=== PATIENT | female | born 1935 | race Caucasian/White ===

== ENCOUNTER → 2017-01-27 | Outpatient (CLI) | payer OTHER ==
[2017-01-27 08:04] LABS: HEMATOCRIT 42.1 % (37.0-47.0); HEMOGLOBIN 13.1 g/dL (12.0-16.0); MEAN CORPUSCULAR HGB CONC 31.1 g/dL (33-37); RDW COEFFICIENT OF VARIATION 15.5 % (11.5-14.5); RED BLOOD COUNT 4.51 10^6/uL (4.20-5.40); WHITE BLOOD COUNT 5.57 10^3/uL (4.8-10.8)
[2017-01-27 08:12] LABS: BILIRUBIN,TOTAL 0.6 mg/dL (0.3-1.2); CALCIUM 9.6 mg/dL (8.7-10.7); CREATININE 1.2 mg/dL (0.50-1.20); LDL CHOLESTEROL,CALCULATED 51.8 mg/dL; POTASSIUM 4.7 meq/L (3.8-5.2)
[2017-01-27 09:16] LABS: FREE T4 (FREE THYROXINE) 1.33 ng/dL (0.93-1.71)
== END ==
LOC: LAB 07:49
PROVIDERS: ATTEND Nurse Practitioner Family
DX: E03.9 Hypothyroidism, unspecified (principal); E78.5 Hyperlipidemia, unspecified; M06.89 Other specified rheumatoid arthritis, multiple sites; F17.210 Nicotine dependence, cigarettes, uncomplicated
CPT/HCPCS: 36415; 80048; 82247; 82465; 82550; 82977; 83718; 84075; 84439; 84443; 84450; 84460; 84478; 85027

== ENCOUNTER → 2017-04-28 | Outpatient (CLI) | payer OTHER | LOC: MMPC 09:00 | PROVIDERS: ATTEND Nurse Practitioner Family | DX: M06.09 Rheumatoid arthritis without rheumatoid factor, multiple sites (principal); E03.9 Hypothyroidism, unspecified; E78.5 Hyperlipidemia, unspecified | CPT/HCPCS: 99214; G0463 ==

== ENCOUNTER → 2017-06-09 | Outpatient (CLI) | payer OTHER ==
--- NOTE | 2017-06-09 19:04 | DI ---
VENOUS DOPPLER ULTRASOUND OF THE LEFT LOWER EXTREMITY, 06/09/2017 5:33 PM: Clinical History: Edema of the left lower extremity. Previous Exam: None. Technique: 2D real-time imaging is supplemented with color Doppler ultrasound. Compression and augmen tation maneuvers were performed. The deep venous system from the groin to the popliteal fossa is norm al. The greater saphenous vein is normal. Reading: Negative venous Doppler ultrasound of the left lower extremity.
== END ==
LOC: US 17:31
PROVIDERS: ATTEND Nurse Practitioner Family
DX: R60.0 Localized edema (principal)
CPT/HCPCS: 93971

== ENCOUNTER 2017-09-28 10:32 | Inpatient (IN) ==
[2017-09-28] MEDS ORDERED: Sodium Chloride 0.9% 1,000 ML ONE (10:44)
--- NOTE | 2017-09-28 10:45 | PDOC ---
Upper Extremity Problem HPI - General Chief Complaint: Upper Extremity Problem/Injury Stated Complaint: hand infection Date Seen by Provider: 09/28/17 Time Seen by Provider: 10:42 Source: POSITIVE: Patient Exam Limitations: POSITIVE: No limitations Nurse's Notes Reviewed & Considered: Yes EMS Report Reviewed & Considered: Unavailable - History of Present Illness Initial Comments: This is an 82-year-old female who presents to the emergency department with a history of increasing redness swelling and pain in her right index finger over the course of the past 24-48 hours. She started having some purulent drainage from it yesterday. No history of any injury, although she does have severe rheumatoid arthritis. No history of any infection like this in the past. She has had some subjective fevers and chills, and she slept all day yesterday, which is unusual for her. No weakness, numbness, tingling in the affected extremity. - Patient Home Medications Home Medications: Home Medications Calcium Carbonate/Vitamin D3 [Calcium 600 with Vit D Chew Tb] 2 ea PO QD tab Magnesium 1 tab PO BID 01/15/15 Aspirin 1 tab PO QPM PRN tab 06/11/15 Cetirizine HCl [Zyrtec] 10 mg PO QD cap 07/28/16 Celecoxib [Celebrex] 1 cap PO BID #180 cap 04/28/17 Gabapentin 1 cap PO TID #270 cap 04/28/17 Levothyroxine Sodium [Synthroid] 1 tab PO QAM #90 tab 04/28/17 Pravastatin Sodium [Pravachol] 1 tab PO QPM #90 tab 04/28/17 hydrocodone 10 mg-acetaminophen 325 mg tablet 1 tab PO Q4-6H #150 tab 07/30/17 hydrocodone 10 mg-acetaminophen 325 mg tablet 1 tab PO Q4-6H PRN #150 tab - Patient Allergies Allergies/Adverse Reactions: Allergies 3 Allergy/AdvReac Type Severity Reaction Status Date / Time adhesive AdvReac Intermediate RASH Verified 09/28/17 15:54 methotrexate AdvReac Mild vomiting Verified 09/28/17 15:54 blueberry AdvReac unknown Verified 09/28/17 15:54 strawberry AdvReac RASH Verified 09/28/17 15:54 Past Medical History - heen HEENT History: Cataracts, Hard of Hearing, Dentures/Partials Cardiovascular History: Hyperlipidemia Additional Cardiovasular History: RIGHT CAROTID ENDARTERECTOMY 2012 Respiratory History: Shortness of Breath, Sleep Apnea, Home Oxygen Use, Snoring Gastrointestinal History: Other (please comment) Additional Gastrointestinal History: PARTIAL BOWEL OBSTRUCTION 2011 Genitourinary History: Denies History Endocrine History: Hypothyroidism Musculoskeletal History: Arthritis, Osteoporosis, Rheumatoid Arthritis, Muscle Weakness, Limited ROM, Joint Pain, Physical Limitation, Osteoarthritis Prosthesis or Implant: No Neurological History: CVA, Motion Sickness Additional Neurological History: 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, BALANCE ISSUES Blood Disorders: Denies History Psychiatric History: Denies History History of Sexually Transmitted Diseases: No Cancer History: Denies History History of MDRO: No History of Other Communicable Diseases: No Alcohol Use: Occasionally In the Past 12 Months, Have Used or Abuse Any Substance: None Previous Surgical History: Yes Type / Date of Surgery: APPY/ RIGHT ENDARTERECTOMY/ TONSILLECTOMY Anesthesia Reactions: Yes (PONV) Malignant Hyperthermia: No Significant Family History: Cancer, Diabetes Past Medical History Reviewed: Reviewed - No Changes ROS - Limitations ROS Limitations: No Limitations Constitution: REPORTS: Chills, Fever Cardiovascular: DENIES: Chest Pain Respiratory: REPORTS: Cough Non Productive. DENIES: Shortness Of Breath Neurological: REPORTS: Dizziness (When standing up.). DENIES: Headache Gastrointestinal: REPORTS: Abdominal Pain, Nausea. DENIES: Vomitting, Diarrhea Endocrine: REPORTS: Fatigue Musculoskeletal: REPORTS: Joint Pain, Muscle Aches Genitourinary: DENIES: Dysuria, Hematuria Eyes: DENIES: Eye Drainage ENT: REPORTS: Congestion, Nasal Drainage. DENIES: Sore Throat Skin: REPORTS: Rash (Redness swelling and drainage from the right index finger) Immunologic: POSITIVE: Denies Symptoms Psychiatric: NEGATIVE: Confusion Upper Extremity Problem Exam - General Appearance General Appearance: POSITIVE: Alert, Cooperative, No Acute Distress - Upper Extremity Upper Extremity: POSITIVE: Swelling (Swelling numerous joints from her rheumatoid arthritis, but worse in the right index finger.). NEGATIVE: Joints Normal (Her finger joints are significantly deformed from rheumatoid arthritis) Vascular: POSITIVE: No Vascular Compromise - Skin Skin: POSITIVE: Warm, Dry, Erythema (Right index finger. She has purulent drainage from two sources along the proximal phalanx.) - Neuro / Psych Peripheral Neuro Exam: POSITIVE: Sensation Normal, Motor Normal Central Neuro Exam: POSITIVE: Oriented to Person, Oriented to Place, Oriented to Time, Normal Speech, Appropriate Mood - HEENT HEENT: NEGATIVE: Scleral Icterus - Respiratory / CVS Respiratory / CVS: POSITIVE: No Respiratory Distress, Breath Sounds Normal, Regular Rate & Rhythm, Heart Sounds Normal - Abdomen Additional Abdominal Details: Abdomen is soft, nondistended, she does have moderate right upper quadrant tenderness to palpation. No rebound or guarding. Active bowel sounds all 4 quadrants. No bruits. Upper Ext Problem Progress - Results Reviewed by me Xrays/CTs/US Reviewed by me: Yes Discussed with Radiologist: No Lab Results Reviewed by Me: Yes CBC and BMP: 09/28/17 10:59 09/28/17 11:00 - Patient's Progress Pain Medication Addressed: POSITIVE: Yes Status: POSITIVE: Unchanged MDM / ED Course: Emergency room course: After initial evaluation, an IV was started and blood was drawn. Once the labs reviewed, they're discussed with the patient and her family. I reviewed the x-rays that were done by the urgent care provider, and those showed severe degenerative changes from rheumatoid arthritis, but I could not definitively say there was obvious osteomyelitis. I gave the patient 1 g of Ancef IV. I discussed the case with the hospitalist, who wanted me to talk with orthopedic surgeon before admitting the patient. I tried to get in touch with the orthopedic surgeon on-call, but he was in surgery. By the time that she was done with surgery and called me back, the hospitalist had gone ahead and admitted the patient. Please note that wound cultures were done by the urgent care provider prior to transfer, I did draw blood cultures. The patient is not currently on any immunomodulating therapy as I can tell. Patient Care Time - Estimated PCT Patient Care Time (In Minutes): 25 Vital Signs - Recent Vital Signs Vital Signs: Vital Signs (Last 8 hours) Temp Pulse Pulse Resp BP Pulse Ox 09/28/17 15:44 98.7 F 78 18 127/57 91 09/28/17 15:37 80 18 Discharge Clinical Impression: Cellulitis and abscess of finger, unspecified Discharge Disposition: Admit to Inpatient Condition: Fair Date Decision to Admit to Inpatient: 09/28/17 Time Decision to Admit to Inpatient: 17:30
[2017-09-28] MEDS ORDERED: NORMAL SALINE 10 ML SYRINGE FLUSH IVP PRN ×2 (10:53→16:06)
[2017-09-28 11:00] LABS: BASOPHILS # (AUTO) 0.03 10*3/UL; BASOPHILS % (AUTO) 0.2 % (0-1); EOSINOPHILS # (AUTO) 0.01 10*3/UL; EOSINOPHILS % (AUTO) 0.1 % (0-8); Hemoglobin [HGB] 11.7 g/dL (12.0-16.0); LYMPHOCYTES # (AUTO) 1.43 10*3/uL; MEAN CORPUSCULAR HEMOGLOBIN 29.5 PG (27-31); MEAN CORPUSCULAR HGB CONC 31.6 g/dL (33-37); MEAN CORPUSCULAR VOLUME 93.4 FL (81-99); MEAN PLATELET VOLUME 9.4 FL (7.4-12.2); MONOCYTES # (AUTO) 1.36 10*3/UL (0.3-0.8); MONOCYTES % (AUTO) 9.1 % (5-15); NEUTROPHILS # (AUTO) 12.02 10*3/UL; NEUTROPHILS % (AUTO) 80.7 % (50-80); RED BLOOD COUNT 3.96 10^6/uL (4.20-5.40)
[2017-09-28 11:20] LABS: BLOOD UREA NITROGEN 25 mg/dL (7-22); LIPASE 10 IU/L (23-300); SERUM ALBUMIN 3.8 g/dL (3.5-4.8)
[2017-09-28 11:36] LABS: PLATELET MORPHOLOGY COMMENT NORMAL MORPHOLOGY (NORM); RBC MORPHOLOGY COMMENT NORMAL MORPHOLOGY (NORM); WBC MORPHOLOGY COMMENT NORMAL MORPHOLOGY (NORM)
[2017-09-28 13:25] LABS: BILIRUBIN,URINE SMALL (NEG); GLUCOSE, URINE (UA) NEGATIVE (NEG); NITRATE,URINE POSITIVE (NEG); OCCULT BLOOD,URINE Trace-intact (NEG); PH,URINE 5.5 (5.0-8.5); PROTEIN,URINE 30 mg/dl (NEG); UROBILINOGEN,URINE 0.2 EU/dL (0.2)
[2017-09-28 13:26] LABS: BACTERIA,URINE RARE; CLARITY,URINE SLIGHTLY CLOUDY (CLEAR); COLOR,URINE DARK YELLOW (Y); RBC,URINE 0 /hpf; SQUAMOUS EPITHELIAL CELL,UR MODERATE; URINE SAMPLE TYPE CATH SPECIMEN
[2017-09-28] MEDS ORDERED: ceFAZolin Inj 1 GM in Sodium Chloride 0.9% 100 ML IV ONE (14:00)
--- NOTE | 2017-09-28 15:42 | PDOC ---
HPI - History of Present Illness Date and Time of Service: 09/28/2017 4:27 PM Chief Complaint: Pain in the right hand of 2 days' duration, swelling and drainage in the right index finger of one day duration History of Present Illness: This is an 82 years old female with medical history significant for history of rheumatoid arthritis, hypothyroidism, osteoarthritis, history of CVA with previous right endarterectomy who went to the urgent care clinic because of pain in the right hand started 2 days ago, pain and swelling in the right index finger that started to drain today. she went to the urgent clinic from there she was sent to the ER x-ray was taken, her white count was elevated at 14,000 , blood culture was taking she was given Ancef and was admitted. She did say that she vomited like 3 times today should did not take any of her medications. She described her pain as severe. Denied other symptoms. She is not sure whether she had fever at home but the right hand was warm. Past Medical History Medical History: 1. Osteoarthritis. 2. Rheumatoid arthritis. 3. History of cerebrovascular accident with a history of a right-sided carotid endarterectomy. 4. Obstructive sleep apnea intolerant of CPAP. 5. Hypercholesterolemia. 6. Hypothyroidism Surgical History: 1. Carotid endarterectomy, right-sided. 2. Appendectomy. 3. Tonsillectomy. 4. 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 [place] Tobacco Use: Current Every Day Smoker In the Past 12 Months, Have Used or Abuse Any of the Following Substance: None Alcohol Use: None Medication / Allergies Home Medications: Home Medications Medication Instructions Recorded Confirmed Type Calcium Carbonate/Vitamin D3 2 ea PO QD tab 12/26/14 09/28/17 History [Calcium 600 with Vit D Chew Tb] Magnesium 1 tab PO BID 01/15/15 09/28/17 History Aspirin 1 tab PO QPM PRN tab 06/11/15 09/28/17 History Cetirizine HCl [Zyrtec] 10 mg PO QD cap 07/28/16 09/28/17 History Celecoxib [Celebrex] 1 cap PO BID #180 cap 04/28/17 09/28/17 Rx Gabapentin 1 cap PO TID #270 cap 04/28/17 09/28/17 Rx Levothyroxine Sodium [Synthroid] 1 tab PO QAM #90 tab 04/28/17 09/28/17 Rx Pravastatin Sodium [Pravachol] 1 tab PO QPM #90 tab 04/28/17 09/28/17 Rx hydrocodone 10 mg-acetaminophen 1 tab PO Q4-6H #150 tab 07/30/17 09/28/17 Clinic 325 mg tablet hydrocodone 10 mg-acetaminophen 1 tab PO Q4-6H PRN #150 tab 09/01/17 09/28/17 Rx 325 mg tablet Allergies/Adverse Reactions: Allergies 3 Allergy/AdvReac Type Severity Reaction Status Date / Time adhesive AdvReac Intermediate RASH Verified 09/28/17 15:54 methotrexate AdvReac Mild vomiting Verified 09/28/17 15:54 blueberry AdvReac unknown Verified 09/28/17 15:54 strawberry AdvReac RASH Verified 09/28/17 15:54 Review of Systems - Review of Systems All Systems: Reviewed & No Additional Complaints Except as Stated Exam - General General Appearance: Cooperative, Obese Additional General Exam Details: She appears uncomfortable - Head Head Exam: Normal Inspection - Eye Eye Exam: POSITIVE: Normal Appearance - Neck Additional Neck Exam Details: Left torticollis - Respiratory Respiratory Exam: POSITIVE: Clear to Auscultation - Bilaterally - Cardiovascular Cardiovascular Exam: POSITIVE: RRR - GI/Abdominal GI/Abdominal Exam: POSITIVE: Normal Bowel Sounds, Non Tender, Non Distended, Soft - Rectal Rectal Exam: POSITIVE: Deferred - External Exam: POSITIVE: Deferred - Extremities Additional Extremities Exam Details: Evidence of advanced rheumatoid arthritis in both hands noted. She had multiple rheumatoid nodules On the extensor surface of both forearms. There is swelling of the right index finger which is tender and warm. 2 areas in the proximal phalanx area that is draining pus. - Neurological Neurological Exam: POSITIVE: Alert, Oriented x 3, CN II-XII Intact, Moves All Extremities Equally - Psychiatric Psychiatric Exam: POSITIVE: Normal Affect Results - Labs CBC and BMP: 09/28/17 10:59 09/28/17 11:00 - Imaging Status: Report Reviewed by Me (X-ray right hand 1. Diffuse osteoporosis, joint deformity and erosions most consistent with advanced rheumatoid arthritis. 2. A lucency through the right mid second proximal phalanx worrisome for a fracture. This does not appear to be acute. Correlate clinically. 3. Large amount of soft tissue swelling surrounding the right index finger to include a small area of air. Correlate clinically as this may represent an abscess.) Assessment and Plan - Patient Problems (1) Abscess of right index finger Current Visit: Yes Status: Acute Comment: Culture was taken, I think will put her on vancomycin I did speak with Dr. Greenberg he will have a look at her. I will write for pain medications also. Code(s): L02.511 - Cutaneous abscess of right hand (2) Hypothyroid Current Visit: No Status: Acute Comment: Same med Code(s): E03.9 - Hypothyroidism, unspecified Qualifiers: Hypothyroidism type: unspecified hypothyroidism (3) Hypercholesterolemia Current Visit: No Status: Acute Comment: Same med Code(s): E78.0 - Pure hypercholesterolemia
[2017-09-28] MEDS ORDERED: ONDANSETRON 4 MG/2 ML VIAL IVP PRN (16:06)
[2017-09-28] MEDS ORDERED: LIDOCAINE W/ SODIUM BICARB 0.5 ML SYR SUBD PRN (16:06)
[2017-09-28] MEDS ORDERED: ACETAMINOPHEN 325 MG TABLET PO PRN (16:06)
[2017-09-28] MEDS ORDERED: Vancomycin-PHA to Dose IV PRN (16:11)
[2017-09-28] MEDS ORDERED: HYDROmorphone 2 MG/1 ML IVP PRN (16:15)
[2017-09-28] MEDS: HYDROcodone-APAP 10 MG-325 MG TABLET PO PRN ×2 (16:46→23:31)
[2017-09-28] MEDS: Sodium Chloride 0.9% 1,000 ML PRIMARY IV SCH (16:48)
[2017-09-28] MEDS ORDERED: Pravastatin Tab 40 MG TAB PO SCH (21:00)
[2017-09-28] MEDS: CELECOXIB 200 MG CAPSULE PO SCH (21:14)
[2017-09-28] MEDS: GABAPENTIN 100 MG CAPSULE PO SCH (21:14)
--- NOTE | 2017-09-28 21:14 | CONSULT ---
Consult Note - Consult Consult Date: 09/28/17 Reason for Consult: PreOp Consulation : Ortho Requesting Physician: Dr. Santiago Primary Care Provider: NONE NONE - History of Present Illness History of Present Illness: Patient is an 82-year-old ambidextrous female who has severe rheumatoid arthritis, chronic deformity to her hand who states she started to have some increasing redness to the finger several days ago and then yesterday started to have some drainage from her right index finger. Patient relates possibly some remote trauma to the finger along the edge of a cupboard which may have started a small laceration but is not sure. She notes that she has had some subjective fever and chills not measured and states she slept all day yesterday and came in today because of general malaise and the drainage from the finger. Patient was seen in urgent care and then sent to the emergency room where x-rays were taken. Patient was seen in the emergency room with an elevated white count elevated inflammatory markers and a drainage from the right index finger. Past Medical History Medical History: 1. Osteoarthritis. 2. Rheumatoid arthritis. 3. History of cerebrovascular accident with a history of a right-sided carotid endarterectomy. 4. Obstructive sleep apnea intolerant of CPAP. 5. Hypercholesterolemia. 6. Hypothyroidism Surgical History: 1. Carotid endarterectomy, right-sided. 2. Appendectomy. 3. Tonsillectomy. 4. 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 [place] Tobacco Use: Current Every Day Smoker In the Past 12 Months, Have Used or Abuse Any of the Following Substance: None Alcohol Use: None Medication / Allergies Home Medications: Home Medications Medication Instructions Recorded Confirmed Type Calcium Carbonate/Vitamin D3 2 ea PO QD tab 12/26/14 09/28/17 History [Calcium 600 with Vit D Chew Tb] Magnesium 1 tab PO BID 01/15/15 09/28/17 History Aspirin 1 tab PO QPM PRN tab 06/11/15 09/28/17 History Cetirizine HCl [Zyrtec] 10 mg PO QD cap 07/28/16 09/28/17 History Celecoxib [Celebrex] 1 cap PO BID #180 cap 04/28/17 09/28/17 Rx Gabapentin 1 cap PO TID #270 cap 04/28/17 09/28/17 Rx Levothyroxine Sodium [Synthroid] 1 tab PO QAM #90 tab 04/28/17 09/28/17 Rx Pravastatin Sodium [Pravachol] 1 tab PO QPM #90 tab 04/28/17 09/28/17 Rx hydrocodone 10 mg-acetaminophen 1 tab PO Q4-6H #150 tab 07/30/17 09/28/17 Clinic 325 mg tablet hydrocodone 10 mg-acetaminophen 1 tab PO Q4-6H PRN #150 tab 09/01/17 09/28/17 Rx 325 mg tablet Allergies/Adverse Reactions: Allergies 3 Allergy/AdvReac Type Severity Reaction Status Date / Time adhesive AdvReac Intermediate RASH Verified 09/28/17 15:54 methotrexate AdvReac Mild vomiting Verified 09/28/17 15:54 blueberry AdvReac unknown Verified 09/28/17 15:54 strawberry AdvReac RASH Verified 09/28/17 15:54 Exam - - Exam: Examination of the right hand does not show any marked or erythema patient does have severe deformity to the right hand as well as a left hand. Particularly the right index finger she has limited motion she does not have a flexor tendon pain but she has an open sore and wound along the dorsal radial aspect of the finger proximal to the PIP joint and also a wound on the proximal ulnar aspect of the finger at the level of the webspace manipulating the tissue around here produces purulent material from both the sinuses she has no flexor tendon pain. She has limited to no motion of the fingers states the produces some discomfort of the index finger and certainly with palpation produces pain. No marked redness no streaking lymphangitis no adenopathy. Patient with multiple rheumatoid nodules throughout the hands otherwise. Radiographs of the right hand show severe deformity to almost every single joint in the hand and wrist there appears to be marked collapse of the carpals with the radius and significant arthritic changes. There is significant arthritic changes at essentially every joint including the CMC is MCP, PIP, DIP joints. The index finger PIP joint is subluxed significant erosions and angulation consistent with some other joints in the hand. No clear evidence of osteomyelitis - Vitals Vital Signs: Vital Signs Temperature 98.7 F Temperature Source Oral Pulse Rate [Apical] 80 Pulse Rate [Pulse Oximeter 78 Bilateral Radial] Respiratory Rate 18 Blood Pressure [Left Arm] 127/57 Pulse Ox 91 Oxygen Flow Rate 2 Oxygen Delivery Method Room Air Height 5 ft Weight 82.157 kg Results - Labs CBC and BMP: 09/28/17 10:59 09/28/17 11:00 Additional Lab Results: Laboratory Results 09/28/17 09/28/17 09/28/17 Range/Units 10:59 10:59 10:59 WBC 14.90 H (4.8-10.8) 10^3/uL RBC 3.96 L (4.20-5.40) 10^6/uL Hgb 11.7 L (12.0-16.0) g/dL Hct 37.0 (37.0-47.0) % MCV 93.4 (81-99) FL MCH 29.5 (27-31) PG MCHC 31.6 L (33-37) g/dL RDW Std Deviation 51.0 H (39-50) fL RDW Coeff of Bertrand 15.2 H (11.5-14.5) % Plt Count 270 (140-350) 10*3/uL MPV 9.4 (7.4-12.2) FL Immature Gran % (Auto) 0.3 (0-5) % Neut % (Auto) 80.7 H (50-80) % Lymph % (Auto) 9.6 L (10-50) % [place] % (Auto) 9.1 (5-15) % Eos % (Auto) 0.1 (0-8) % Baso % (Auto) 0.2 (0-1) % Immature Gran # (Auto) 0.05 10*3/UL Neut # (Auto) 12.02 10*3/UL Lymph # (Auto) 1.43 10*3/uL Marin # (Auto) 1.36 H (0.3-0.8) 10*3/UL Eos # (Auto) 0.01 10*3/UL Baso # (Auto) 0.03 10*3/UL WBC Morphology Comment Normal morphology (NORM) Plt Morphology Comment Normal morphology (NORM) RBC Morph Comment Normal morphology (NORM) ESR 61 H (0-20) MM/HR Sodium (135-145) meq/L Potassium (3.8-5.2) meq/L Chloride (98-112) meq/L Carbon Dioxide (23-33) meq/L Anion Gap (5-20) BUN (7-22) mg/dL Creatinine (0.50-1.20) mg/dL BUN/Creatinine Ratio (6-20) Glucose (78-110) mg/dL Calculated Osmolality (267-292) mOsm/kg Lactic Acid (0.70-2.10) MMOL/L Calcium (8.7-10.7) mg/dL Total Bilirubin (0.3-1.2) mg/dL AST (8-39) IU/L ALT (9-52) IU/L Alkaline Phosphatase (38-126) IU/L C-Reactive Protein 20.9 H (0.0-0.9) mg/dL Total Protein (6.1-8.0) g/dL Albumin (3.5-4.8) g/dL Globulin (2.50-4.10) g/dL Albumin/Globulin Ratio (1.3-2.0) mg/g Lipase (23-300) IU/L Ur Collection Type Urine Color (Y) Urine Clarity (CLEAR) Urine pH (5.0-8.5) Ur Specific [place] (1.005-1.030) Urine Protein (NEG) mg/dl Urine Glucose (UA) (NEG) mg/dL Urine Ketones (NEG) Urine Occult Blood (NEG) Urine Nitrate (NEG) Urine Bilirubin (NEG) Urine Urobilinogen (0.2) EU/dL Ur Leukocyte Esterase (NEG) Urine RBC (NONE) /hpf Urine WBC (NONE) Ur Squamous Epith Cells (NONE) Ur Renal Epithelial Cell (NONE) Urine Crystals Urine Bacteria (NONE) Urine Casts (NONE) Urine Mucus (NONE) Urine Trichomonas (NONE) Urine Yeast (NONE) Ur Culture Indicated? 09/28/17 09/28/17 09/28/17 Range/Units 11:00 11:00 13:20 WBC (4.8-10.8) 10^3/uL RBC (4.20-5.40) 10^6/uL Hgb (12.0-16.0) g/dL Hct (37.0-47.0) % MCV (81-99) FL MCH (27-31) PG MCHC (33-37) g/dL RDW Std Deviation (39-50) fL RDW Coeff of Bertrand (11.5-14.5) % Plt Count (140-350) 10*3/uL MPV (7.4-12.2) FL Immature Gran % (Auto) (0-5) % Neut % (Auto) (50-80) % Lymph % (Auto) (10-50) % [place] % (Auto) (5-15) % Eos % (Auto) (0-8) % Baso % (Auto) (0-1) % Immature Gran # (Auto) 10*3/UL Neut # (Auto) 10*3/UL Lymph # (Auto) 10*3/uL [place] # (Auto) (0.3-0.8) 10*3/UL Eos # (Auto) 10*3/UL Baso # (Auto) 10*3/UL WBC Morphology Comment (NORM) Plt Morphology Comment (NORM) RBC Morph Comment (NORM) ESR (0-20) MM/HR Sodium 142 (135-145) meq/L Potassium 4.0 (3.8-5.2) meq/L Chloride 106 (98-112) meq/L Carbon Dioxide 23 (23-33) meq/L Anion Gap 13 (5-20) BUN 25 H (7-22) mg/dL Creatinine 1.0 (0.50-1.20) mg/dL BUN/Creatinine Ratio 25.00 H (6-20) Glucose 100 (78-110) mg/dL Calculated Osmolality 297.0 H (267-292) mOsm/kg Lactic Acid 1.3 (0.70-2.10) MMOL/L Calcium 9.7 (8.7-10.7) mg/dL Total Bilirubin 1.0 (0.3-1.2) mg/dL AST 26 (8-39) IU/L ALT 28 (9-52) IU/L Alkaline Phosphatase 71 (38-126) IU/L C-Reactive Protein (0.0-0.9) mg/dL Total Protein 7.5 (6.1-8.0) g/dL Albumin 3.8 (3.5-4.8) g/dL Globulin 3.7 (2.50-4.10) g/dL Albumin/Globulin Ratio 1.00 L (1.3-2.0) mg/g Lipase 10 L (23-300) IU/L Ur Collection Type Cath specimen Urine Color Dark yellow (Y) Urine Clarity Slightly cloudy A (CLEAR) Urine pH 5.5 (5.0-8.5) Ur Specific [place] 1.025 (1.005-1.030) Urine Protein 30 A (NEG) mg/dl Urine Glucose (UA) Negative (NEG) mg/dL Urine Ketones Trace A (NEG) Urine Occult Blood Trace-intact H (NEG) Urine Nitrate Positive A (NEG) Urine Bilirubin Small (NEG) Urine Urobilinogen 0.2 (0.2) EU/dL Ur Leukocyte Esterase Negative (NEG) Urine RBC 0 (NONE) /hpf Urine WBC 1-3 (NONE) Ur Squamous Epith Cells Moderate (NONE) Ur Renal Epithelial Cell None (NONE) Urine Crystals None Urine Bacteria Rare (NONE) Urine Casts None (NONE) Urine Mucus Many (NONE) Urine Trichomonas None (NONE) Urine Yeast None (NONE) Ur Culture Indicated? Culture set Patient with Gram stain with gram-negative rods and round rare gram-positive cocci, cultures pending Assessment and Plan - Assessment / Plan Additional Assessment/Plan Details: Impression: Severe rheumatoid arthritis and multiple other medical comorbidities with a draining wound of right index finger with cellulitis F Plan: Patient was started on vancomycin, cultures were obtained in the urgent care unfortunately the area was not sterilized prior to obtaining cultures and she has alert he had antibiotics. Discussed the possibility of open incision and drainage with the patient which I think at least connecting the 2 draining sinuses to see if this extends elsewhere particularly to the PIP joint. I did discuss the possibility of amputation of the finger with the patient which she is not interested in at the current time. I think we will plan on incision and drainage and trying to get this to resolve. - Time/Visit Time Spent With Patient: Greater Than 35 Mintues
[2017-09-29] MEDS ORDERED: LEVOTHYROXINE 112 MCG TABLET PO SCH (05:30)
[2017-09-29] MEDS: HYDROcodone-APAP 10 MG-325 MG TABLET PO PRN ×2 (05:41→19:01)
[2017-09-29] MEDS: Sodium Chloride 0.9% 1,000 ML PRIMARY IV SCH ×2 (07:27→22:23)
[2017-09-29 07:31] LABS: BASOPHILS # (AUTO) 0.03 10*3/UL; BASOPHILS % (AUTO) 0.3 % (0-1); EOSINOPHILS # (AUTO) 0.16 10*3/UL; EOSINOPHILS % (AUTO) 1.8 % (0-8); Hematocrit [HCT] 33.9 % (37.0-47.0); Hemoglobin [HGB] 10.6 g/dL (12.0-16.0); LYMPHOCYTES # (AUTO) 1.34 10*3/uL; MEAN CORPUSCULAR HEMOGLOBIN 29.5 PG (27-31); MEAN CORPUSCULAR HGB CONC 31.3 g/dL (33-37); MEAN CORPUSCULAR VOLUME 94.4 FL (81-99); MEAN PLATELET VOLUME 9.3 FL (7.4-12.2); MONOCYTES # (AUTO) 1.04 10*3/UL (0.3-0.8); MONOCYTES % (AUTO) 11.9 % (5-15); NEUTROPHILS # (AUTO) 6.12 10*3/UL; NEUTROPHILS % (AUTO) 70.4 % (50-80); RED BLOOD COUNT 3.59 10^6/uL (4.20-5.40)
[2017-09-29 07:43] LABS: PLATELET MORPHOLOGY COMMENT NORMAL MORPHOLOGY (NORM); RBC MORPHOLOGY COMMENT NORMAL MORPHOLOGY (NORM); WBC MORPHOLOGY COMMENT NORMAL MORPHOLOGY (NORM)
[2017-09-29] MEDS: GABAPENTIN 100 MG CAPSULE PO SCH ×4 (07:45→20:33)
[2017-09-29] MEDS: CELECOXIB 200 MG CAPSULE PO SCH ×3 (07:45→20:33)
--- NOTE | 2017-09-29 08:12 | PDOC(PROG) ---
Date and Time of Service: 09/29/2017 8:11 AM Interval History: Subjective Pain seemed to be controlled with the current pain medications. Dr. Greenberg made her nothing by mouth and is planning to do I&D today. No more vomiting. Objective : Data - Labs CBC and BMP: 09/29/17 07:24 09/28/17 11:00 Objective : Exam - General General Appearance: No Acute Distress, Cooperative, Obese - Head Head Exam: Normal Inspection, Atraumatic - Eye Eye Exam: Normal Appearance - ENT ENT Exam: Normal Exam - Neck Additional Neck Exam Details: Left torticollis present - Respiratory Respiratory Exam: Clear to Auscultation - Bilaterally - Cardiovascular Cardiovascular Exam: RRR - GI/Abdominal GI/Abdominal Exam: Normal Bowel Sounds, Non Tender, Non Distended, Soft - Rectal Rectal Exam: Deferred - External Exam: Deferred - Extremities Additional Extremities Exam Details: Dressing applied to the right hand. Evidence of rheumatoid arthritis in both hands. Rheumatoid nodules on extensor service of both forearms - Neurological Neurological Exam: Alert, Oriented x 3, CN II-XII Intact, No Facial Droop, Speech Intact / Clear, Moves All Extremities Equally - Psychiatric Psychiatric Exam: Normal Affect - Integumentary Integumentary Exam: Normal Color Assessment and Plan - Patient Problems (1) Abscess of right index finger Current Visit: Yes Status: Acute Comment: Plan for I&D today. Continue current antibiotics Code(s): L02.511 - Cutaneous abscess of right hand (2) Hypothyroid Current Visit: No Status: Acute Comment: Same med Code(s): E03.9 - Hypothyroidism, unspecified Qualifiers: Hypothyroidism type: unspecified hypothyroidism (3) Hypercholesterolemia Current Visit: No Status: Acute Comment: Same med Code(s): E78.0 - Pure hypercholesterolemia
[2017-09-29] MEDS ORDERED: cefTRIAXone Inj 1 GM in Sodium Chloride 0.9% 100 ML IV SCH (11:00)
[2017-09-29] MEDS ORDERED: Lactated Ringers 1,000 ML PRIMARY IV SCH ×2 (11:15→18:58)
[2017-09-29] MEDS ORDERED: Sodium Chloride 0.9% 2,000 ML ONE (14:57)
[2017-09-29] MEDS ORDERED: Sodium Chloride 0.9% vial 10 ML ONE (14:57)
[2017-09-29] MEDS ORDERED: BACITRACIN 50,000 UNIT VIAL IRRIG ONE (14:57)
[2017-09-29] MEDS ORDERED: LIDOCAINE W/ SODIUM BICARB 0.5 ML SYR ONE (16:46)
--- NOTE | 2017-09-29 17:20 | ORTHO.PROG ---
Last Taken Vital Signs: Vital Signs - Last Taken Temperature 98.4 F 09/29/17 16:30 Pulse Rate 62 09/29/17 16:30 Respiratory Rate 16 09/29/17 16:30 Blood Pressure 152/55 09/29/17 16:30 Pulse Ox 94 09/29/17 16:30 Subjective: Doing well mild pain right index finger Objective: Patient with less redness around finger still has drainage from the opening proximal to the PIP joint along the radial aspect and also along the proximal ulnar aspect towards web space. Laboratory Results 09/29/17 Range/Units 07:24 WBC 8.71 (4.8-10.8) 10^3/uL RBC 3.59 L (4.20-5.40) 10^6/uL Hgb 10.6 L (12.0-16.0) g/dL Hct 33.9 L (37.0-47.0) % MCV 94.4 (81-99) FL MCH 29.5 (27-31) PG MCHC 31.3 L (33-37) g/dL RDW Std Deviation 51.2 H (39-50) fL RDW Coeff of Bertrand 15.3 H (11.5-14.5) % Plt Count 236 (140-350) 10*3/uL MPV 9.3 (7.4-12.2) FL Immature Gran % (Auto) 0.2 (0-5) % Neut % (Auto) 70.4 (50-80) % Lymph % (Auto) 15.4 (10-50) % Barton % (Auto) 11.9 (5-15) % Eos % (Auto) 1.8 (0-8) % Baso % (Auto) 0.3 (0-1) % Immature Gran # (Auto) 0.02 10*3/UL Neut # (Auto) 6.12 10*3/UL Lymph # (Auto) 1.34 10*3/uL Barton # (Auto) 1.04 H (0.3-0.8) 10*3/UL Eos # (Auto) 0.16 10*3/UL Baso # (Auto) 0.03 10*3/UL WBC Morphology Comment Normal morphology (NORM) Plt Morphology Comment Normal morphology (NORM) RBC Morph Comment Normal morphology (NORM) Microbiology 09/28/17 11:00 Blood Culture - Preliminary Blood NO GROWTH AFTER 24 HOURS 09/28/17 10:59 Blood Culture - Preliminary Blood NO GROWTH AFTER 24 HOURS 09/28/17 13:20 Urine Culture - Preliminary Urine,Catheterized Vital Signs (24 hrs) Temp Pulse Pulse Pulse Pulse Resp BP 09/29/17 17:17 99.0 F 62 16 162/72 09/29/17 16:30 98.4 F 62 16 09/29/17 13:00 98.8 F 58 L 18 09/29/17 08:00 98.2 F 60 16 09/29/17 07:00 74 09/29/17 04:28 98.5 F 68 19 09/28/17 23:42 98.6 F 67 18 09/28/17 21:00 98.9 F 68 20 BP BP Pulse Ox 09/29/17 17:17 91 09/29/17 16:30 152/55 94 09/29/17 13:00 148/49 94 09/29/17 08:00 136/58 91 09/29/17 07:00 09/29/17 04:28 117/48 92 09/28/17 23:42 138/49 90 09/28/17 21:00 116/56 90 Assessment: Patient with severe rheumatoid arthritis and deformities with draining right index finger question osteomyelitis versus a septic joint versus soft tissue infection Plan: We will plan on IND connecting the dots so to speak between the 2 open sinuses and exploring finger proceed with this may go I did discuss with the patient this may require amputation based on her significant rheumatoid issues in a severe deformity to bring much every joint in the hand and wrist. She understands we'll proceed initially with the incision and drainage leaving open for wound care continued IV antibiotic and we'll follow her along.
[2017-09-29] MEDS ORDERED: LIDOCAINE 2%/ EPI 1:200,000 - 20 ML VIAL ONE (17:21)
[2017-09-29] MEDS ORDERED: fentaNYL Inj 100 MCG/2 ML VIAL ONE (17:21)
[2017-09-29] MEDS ORDERED: MEPIVACAINE HCL/PF 20 MG/1 ML ONE (17:21)
[2017-09-29] MEDS ORDERED: MIDAZOLAM 5 MG/1 ML ONE (17:22)
[2017-09-29] MEDS ORDERED: MIDAZOLAM 5 MG/1 ML IVP ONE (17:22)
[2017-09-29] MEDS ORDERED: PROPOFOL 10 MG/1 ML (200 MG/20 ML) VIAL IV ONE (17:46)
--- NOTE | 2017-09-29 18:10 | CRNA.PROCE ---
Nerve Block Documentation - - Safety Measures: Time Out Taken, Site Verified - - Type of Nerve Block Used: Right Axillary Block (Periarterial tech with 22ga B bevel needle) Position for Nerve Block: Supine Moniters Used During Block: EKG, SPO2, NIBP Oxygen Supplemented: Yes Sedation Used - Enter Amount in Comment Field [ANES.SEDAT]: Midazolam (mg): Yes (1mg iv), Fentanyl (mcg): Yes (50mcg iv) Skin Prep Used: ChloroPrep Technique: Other Nerve Block Needle Used: Other (22ga Bbevel) Local Anesthetic - Enter Amt in Comment Field [ANES.LOCNB]: 2 % Xylocaine with Epinephrine 1:200,000 (mL): Yes (20ml), 2 % Mepivacaine (mL): Yes (20ml) - - PreOp Block : Time In: 17:15 PreOp Block : Time Out: 17:25 Anesthesia Time - Other Weight: 84.096 kg Height: 5 ft Body Mass Index (BMI): 36.2
--- NOTE | 2017-09-29 18:43 | CRNA.PROGR ---
Post Anesthesia Phase II - Post Anesthesia Phase II Patient Stable and Discharged To: Phase II Care Assumed By Surgeon: Raffaele Greenberg MD Temperature: 98.3 F Pulse Rate: 68 Respiratory Rate: 14 Blood Pressure: 153/72 Pulse Ox: 93 Total Cece Score at Discharge: 10 Post Anesthesia Discharge Criteria Met: Yes
--- NOTE | 2017-09-29 18:44 | CRNA.PROGR ---
Anesthesia Time - - Start date: 09/29/17 End date: 09/29/17 - Procedure/Recovery Time Anesthesia : Time In: 17:39 Anesthesia : Time Out: 18:35 Anesthesia : Total Time: 56 - Block Time PreOp Block : Time In: 17:15 PreOp Block : Time Out: 17:25 PreOp Block : Total Time: 10 - Total Anesthesia Time Total Anesthesia Time (minutes): 66 - Other Weight: 84.096 kg Height: 5 ft Body Mass Index (BMI): 36.2 Physical Status: P2 Anesthesia Type: General Anesthesia : LMA
[2017-09-29] MEDS ORDERED: ONDANSETRON 4 MG/2 ML VIAL IVP PRN ×2 (18:58)
[2017-09-29] MEDS ORDERED: LIDOCAINE W/ SODIUM BICARB 0.5 ML SYR SUBD PRN (18:58)
[2017-09-29] MEDS ORDERED: ACETAMINOPHEN 325 MG TABLET PO PRN (18:58)
[2017-09-29] MEDS ORDERED: Sodium Chloride 0.9% 1,000 ML PRIMARY IV SCH (18:58)
[2017-09-29] MEDS ORDERED: NORMAL SALINE 10 ML SYRINGE FLUSH IVP PRN (18:58)
[2017-09-29] MEDS ORDERED: HYDROcodone-APAP 10 MG-325 MG TABLET PO PRN (18:58)
[2017-09-29] MEDS: Pravastatin Tab 40 MG TAB PO SCH (20:33)
[2017-09-29] MEDS: HYDROmorphone 2 MG/1 ML IVP PRN (22:55)
[2017-09-30] MEDS: HYDROcodone-APAP 10 MG-325 MG TABLET PO PRN ×4 (01:16→17:21)
[2017-09-30] MEDS: LEVOTHYROXINE 112 MCG TABLET PO SCH ×2 (04:07→05:29)
[2017-09-30] MEDS: HYDROmorphone 2 MG/1 ML IVP PRN (04:19)
[2017-09-30] MEDS: CELECOXIB 200 MG CAPSULE PO SCH ×2 (08:14→20:48)
[2017-09-30] MEDS: GABAPENTIN 100 MG CAPSULE PO SCH ×3 (08:14→20:48)
[2017-09-30] MEDS: LORATADINE 10 MG TABLET PO SCH (08:14)
[2017-09-30] MEDS: MAGNESIUM OXIDE 400 MG TABLET PO SCH (08:15)
[2017-09-30] MEDS: cefTRIAXone Inj 1 GM in Sodium Chloride 0.9% 100 ML IV SCH (10:09)
--- NOTE | 2017-09-30 10:28 | PDOC(PROG) ---
Date and Time of Service: 09/30/2017 10:21 AM Interval History: Subjective She feels a lot better she said, pain seemed to be less. Overall generally she is better. Objective : Data - Labs CBC and BMP: 09/29/17 07:24 09/28/17 11:00 Objective : Exam - General General Appearance: No Acute Distress, Cooperative - Head Head Exam: Normal Inspection, Atraumatic - Eye Eye Exam: Normal Appearance - ENT ENT Exam: Normal Exam - Neck Neck Exam: Normal Inspection - Respiratory Respiratory Exam: Clear to Auscultation - Bilaterally - Cardiovascular Cardiovascular Exam: RRR - GI/Abdominal GI/Abdominal Exam: Normal Bowel Sounds, Non Tender, Non Distended, Soft - Rectal Rectal Exam: Deferred - External Exam: Deferred - Extremities Additional Extremities Exam Details: Dressing applied to the right hand. Chronic changes of rheumatoid arthritis noted. Rheumatoid nodules noted in both extensor surfaces of both arms - Neurological Neurological Exam: Alert, Oriented x 3, CN II-XII Intact, Moves All Extremities Equally - Psychiatric Psychiatric Exam: Normal Affect Assessment and Plan - Patient Problems (1) Abscess of right index finger Current Visit: Yes Status: Acute Comment: Continue current antibiotics until we have culture result. We'll stop the IV fluid Code(s): L02.511 - Cutaneous abscess of right hand (2) Hypothyroid Current Visit: No Status: Acute Comment: Same med Code(s): E03.9 - Hypothyroidism, unspecified Qualifiers: Hypothyroidism type: unspecified hypothyroidism (3) Hypercholesterolemia Current Visit: No Status: Acute Comment: Same med Code(s): E78.0 - Pure hypercholesterolemia
--- NOTE | 2017-09-30 17:34 | PT.PROG ---
Progress Note Progress Note: Thank you for the referral of PT Karol Jaffe was seen on 09/30/17 following . Subjective: The patient is an 82 year old female who suffers from significant rheumatoid arthritis, hypothyroidism, and osteoarthritis. She was seen in acute care following abscess removal in her R hand. The patient is right handed and her stated goals are to regain as much much function as possible in her hand and to return home from the hospital. Prior to dressing removal the pt. complained of 3 /10 pain. After cleaning and redressing the pt. pain was elevated to 5/10. Pt. complains of no other symptoms other than pain in her hand. 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 Following the IND procedure the pt. has increased swelling and redness in her involved hand. There are two main wounds to be addressed, both experiencing undermining. The wound on the radial side of her index finger is 1cm in length with serous drainage. The wound on the webspace between the first and second digit is deeper and a length (a few cm ) was unable to be determined due to pt. pain. Less drainage was noted in this would. Pt. motion in involved hand was decreased due to pain and swelling. Swellingis present from distal tip of the first phalanx into the palm. Measurements were deferred at this time due to pt. pain. Assessment: The patient is ready to take the healing process one day at a time. Her finger is highly sensitive, red, and swollen. Her severe RA also makes her situation more difficult and will be a major obstacle in terms of regaining function. She has a positive attitude and was able to tolerate the cleaning and redressing of her wounds. The pt. will benefit from continued wound healing processes and activity to regain function once healing has begun. 1. Pain 2. Swelling 3. Decreased ROM 4. RA Short Term Goals: 1. The pt. will decrease swelling in hand. 2. The pt. will decrease pain with dressing change to 3/10 to increase comfort with process. [employer] Goals: 1. Increase strength to in hand to allow for increased function with daily tasks. 2. Increase ROM in hands to allow for increased ability to function. Treatment Plan: The patient will be seen B.I.D. during the week and one time per day over the weekend until discharge. ICU Eval: The treatment consisted of initial evaluation with Dr. Greenberg present followed by cleaning of would with saline and redressing. Redressing consisted of light packing with Iodoform, covering with gauze pad, wrapping with gauze and coban. Edward Alba, SPT Ivan Dutton, PT
--- NOTE | 2017-09-30 19:22 | ORTHO.PROG ---
Last Taken Vital Signs: Vital Signs - Last Taken Temperature 98.2 F 09/30/17 16:47 Pulse Rate 65 09/30/17 16:47 Respiratory Rate 20 09/30/17 16:47 Blood Pressure 152/55 09/30/17 16:47 Pulse Ox 92 09/30/17 16:47 Subjective: Patient feels her pain is less right index finger compared to yesterday prior to surgery Objective: Examination of the right index finger shows the finger appears to be more red MRI opinion compared to yesterday though less swelling is she does not have any marked amount of purulent pain after the drains were pulled and manipulation of the soft tissue as we were yesterday. She has limited motion of the fingers. She has to open sinuses which had been debrided open the soft tissue underneath these and iodoform had been removed. This is being repacked. Active Medications Microbiology 09/28/17 11:00 Blood Blood Culture - Preliminary NO GROWTH AFTER 48 HOURS 09/28/17 10:59 Blood Blood Culture - Preliminary NO GROWTH AFTER 48 HOURS 09/28/17 13:20 Urine,Catheterized Urine Culture - Final Vital Signs (24 hrs) Temp Pulse Pulse Pulse Resp BP BP 09/30/17 16:47 98.2 F 65 20 152/55 09/30/17 13:00 97.7 F 58 L 18 163/53 09/30/17 08:53 98.2 F 60 20 125/46 09/30/17 07:00 64 67 09/30/17 04:26 98.6 F 62 16 131/56 09/30/17 01:00 97.8 F 70 16 118/48 09/29/17 21:00 98 F 82 18 135/49 Pulse Ox 09/30/17 16:47 92 09/30/17 13:00 95 09/30/17 08:53 92 09/30/17 07:00 09/30/17 04:26 91 09/30/17 01:00 94 09/29/17 21:00 92 Assessment: Right index finger abscess with drainage cannot really assess where exactly this originated from possibly from trauma to the finger where she states she had a small cut. Other possibilities include the metacarpophalangeal joint of the index finger versus the PIP joint index finger but because essentially all joints on the fingers are destroyed and have limited to no motion I think it is not possible to delineate the source of her infection. Continue with IV antibiotics wound care possible second washout. Patient is with no evidence of flexor tenosynovitis Plan: Continue with IV antibiotics, hospitalist apparently discussed the case with infectious disease. We will possibly consider a second washout as were following the wound care long period if this does not heal progress adequately the patient may require amputation as we have discussed.
[2017-09-30] MEDS: Pravastatin Tab 40 MG TAB PO SCH (20:48)
[2017-10-01] MEDS: HYDROcodone-APAP 10 MG-325 MG TABLET PO PRN ×4 (00:05→16:59)
[2017-10-01] MEDS: LEVOTHYROXINE 112 MCG TABLET PO SCH (04:51)
[2017-10-01] MEDS: MAGNESIUM OXIDE 400 MG TABLET PO SCH (08:33)
[2017-10-01] MEDS: CELECOXIB 200 MG CAPSULE PO SCH ×2 (08:33→20:59)
[2017-10-01] MEDS: LORATADINE 10 MG TABLET PO SCH (08:33)
[2017-10-01] MEDS: GABAPENTIN 100 MG CAPSULE PO SCH ×3 (08:33→20:59)
[2017-10-01] MEDS: cefTRIAXone Inj 1 GM in Sodium Chloride 0.9% 100 ML IV SCH (11:02)
--- NOTE | 2017-10-01 12:39 | PDOC(PROG) ---
Interval History: Patient is doing well has no complaints Objective : Data - Labs CBC and BMP: 09/29/17 07:24 09/28/17 11:00 Objective : Exam - Respiratory Respiratory Exam: Clear to Auscultation - Bilaterally, Breathing Non Labored - Cardiovascular Cardiovascular Exam: RRR, No Murmur, No Clicks Assessment and Plan - Patient Problems (1) Abscess of right index finger Current Visit: Yes Status: Acute Comment: Further orthopedic surgery for possible second washout. Patient has a history of rheumatoid arthritis she only took methotrexate for 3 years did not tolerate it she is only on Celebrex at present time. Continue antibiotics Code(s): L02.511 - Cutaneous abscess of right hand
[2017-10-01] MEDS: NORMAL SALINE 10 ML SYRINGE FLUSH IVP PRN ×2 (12:54→19:17)
--- NOTE | 2017-10-01 16:06 | PT.PROG ---
Progress Note Progress Note: S: Pt. reported decreased pain at a 5/10. She said her hand is feeling better and that she would like to return home soon. O: Swelling and redness of the 2nd phalanx has decreased. Wounds are both 1cm in diameter. The wound in the webspace between the second and third digits is experiencing tunneling 2.5cm in depth. The wound on the radial side of the index finger is 1cm in depth. Both wounds were absent of exudate or drainage. The wounds were cleaned, packed with Iodoform, and rebandanged. A: The second phalanx was much improved from yesterday. Redness, swelling and pain has all decreased. Motion of the whole hand has also improved. No drainage was present in either wound. Pt. will continue to benefit from skilled therapy for cleaning and redressing until discharge. P: Continue POC. Edward Alba, SPT Ivan Dutton, PT
--- NOTE | 2017-10-01 17:25 | ORTHO.PROG ---
Last Taken Vital Signs: Vital Signs - Last Taken Temperature 98.1 F 10/01/17 16:42 Pulse Rate 62 10/01/17 16:42 Respiratory Rate 20 10/01/17 16:42 Blood Pressure 157/55 10/01/17 16:42 Pulse Ox 93 10/01/17 16:42 Subjective: Patient notes her pain is getting less and seems to be doing better Objective: Sinuses is still open there is some tunneling on both of the thumb seems to be getting less is no active drainage from these areas when the sarah were removed with manipulation and pain is less. Microbiology 09/28/17 11:00 Blood Blood Culture - Preliminary NO GROWTH AFTER 48 HOURS 09/28/17 10:59 Blood Blood Culture - Preliminary NO GROWTH AFTER 48 HOURS 09/28/17 13:20 Urine,Catheterized Urine Culture - Final Cultures obtained of the hand were done as an outpatient and are showing a light growth of gram-negative rods still pending identification. Assessment: Right index finger abscess with history of severe rheumatoid arthritis. Patient on IV antibiotics. Switched the current time from vancomycin and ceftriaxone 2 apparently cefepime Plan: Continue with wound care and IV antibiotics. Question as to recommendation from infectious disease. Patient has severe immunocompromisation and suspect that antibiotics would be helpful until this is completely healed. We will continue to follow her along
[2017-10-01] MEDS: HYDROmorphone 2 MG/1 ML IVP PRN (19:16)
[2017-10-01] MEDS: Pravastatin Tab 40 MG TAB PO SCH (20:59)
[2017-10-01] MEDS ORDERED: Cefepime Inj 2 GM in Sodium Chloride 0.9% 100 ML IV SCH (21:00)
[2017-10-01] MEDS: Cefepime Inj 2 GM in Sodium Chloride 0.9% 100 ML IV SCH (21:00)
[2017-10-02] MEDS: LEVOTHYROXINE 112 MCG TABLET PO SCH (04:34)
[2017-10-02] MEDS: MAGNESIUM OXIDE 400 MG TABLET PO SCH (06:26)
[2017-10-02] MEDS: HYDROcodone-APAP 10 MG-325 MG TABLET PO PRN ×4 (06:27→18:42)
[2017-10-02] MEDS: GABAPENTIN 100 MG CAPSULE PO SCH ×3 (08:10→20:48)
[2017-10-02] MEDS: LORATADINE 10 MG TABLET PO SCH (08:10)
[2017-10-02] MEDS: Cefepime Inj 2 GM in Sodium Chloride 0.9% 100 ML IV SCH (08:10)
[2017-10-02] MEDS: CELECOXIB 200 MG CAPSULE PO SCH ×2 (08:10→20:48)
[2017-10-02] MEDS ORDERED: Meropenem Inj 1 GM in Sodium Chloride 0.9% 100 ML IV ONE (10:00)
[2017-10-02] MEDS: NORMAL SALINE 10 ML SYRINGE FLUSH IVP PRN ×2 (10:10→14:12)
[2017-10-02] MEDS ORDERED: NORMAL SALINE 10 ML SYRINGE FLUSH IV PRN (10:31)
[2017-10-02] MEDS ORDERED: Lidocaine 1% 10 MG/ML - 20 ML VIAL SUBCUT PRN (10:31)
[2017-10-02] MEDS ORDERED: LIDOCAINE 2% 20 MG/ML - 20 ML VIAL SUBCUT PRN (10:31)
[2017-10-02] MEDS ORDERED: HEPARIN 500 UNIT/5 ML SYRINGE FOR CENTRAL LINE IVP PRN (10:31)
--- NOTE | 2017-10-02 10:42 | PDOC(PROG) ---
Interval History: Patient has no complaints doing well. She said she spoke to Sofya Pichardo this morning and that they told her he was doing great. Objective : Data - Labs CBC and BMP: 09/29/17 07:24 09/28/17 11:00 Objective : Exam - Respiratory Respiratory Exam: Clear to Auscultation - Bilaterally, Breathing Non Labored, Normal To Percussion - Cardiovascular Cardiovascular Exam: RRR, No Murmur, No Clicks - GI/Abdominal GI/Abdominal Exam: Non Tender, Non Distended, Soft Assessment and Plan - Patient Problems (1) Abscess of right index finger Current Visit: Yes Status: Acute Comment: Sofya Pichardo is evaluating I will try to contact him. I did discuss the case with infectious disease the patient is growingBulcholderia cepacia merepenem 1 gramq 12 for 10 -[address] Greenberg he agrees with the plan and he will follow the wound as an outpatient. He started it looked good and did not need a further washout at this time he also does not think the tendon is involved but it is hard to tell with her rheumatoid arthritis has been underlying disease discuss case with patient and daughter which are in agreement Code(s): L02.511 - Cutaneous abscess of right hand
--- NOTE | 2017-10-02 12:44 | PT.PROG ---
Progress Note Progress Note: S: The pt. stated she is in much less pain and that her hand feels much better. O: Swelling has of the first digit has significantly decreased and redness is down as well. Size of the wounds remain unchanged, however no drainage is exiting the the wounds. Wounds were cleaned with saline and were repacked with Iodoform and rebandaged. A: The pt. walked down to the woundcare room for changing independently with her walker. She tolerated dressing change very well today. Dr. Greenberg sat in to [facility] and things are looking good. Pain, swelling, redness, and motion have all improved since yesterday. Pt. is cleared from PT to continue treatment as an outpatient. P: Continue POC. Edward Alba, SPT Ivan Dutton, PT
--- NOTE | 2017-10-02 13:18 | DI ---
XR PICC Line Insertion 5 Yrs>, US Vascular Access-US Guidance,10/02/2017 10:31 AM: Clinical History: PICC line placement. Previous Exam: None at this facility. Risks, benefits and alternatives were explained to the patient, and informed written consent obtained . The patient was placed supine on the fluoroscopy table and the left arm prepped and draped in usual s terile fashion. 1% lidocaine was used for local anesthesia. There is a tourniquet placed around the right upper arm. Under sonographic guidance, a micropuncture kit was used to access the basilic vein. An 018 wire was then advanced through the basilic vein and a delay catheter advanced over the wire. A Bard power PICC was then advanced through the peel-away catheter, and the catheter removed. Fluoroscopy images were then obtained demonstrating a PICC line with the tip in the superior vena cav a. The lines were flushed and attached to the skin. Findings: Upper extremity image demonstrates a PICC line with the tip in good position. Impression: Successful placement of a left PICC line with the tip in good position.
[2017-10-02] MEDS: Pravastatin Tab 40 MG TAB PO SCH (20:48)
[2017-10-02] MEDS ORDERED: Meropenem Inj 1 GM in Sodium Chloride 0.9% 100 ML IV SCH (21:00)
[2017-10-02] MEDS: Meropenem Inj 1 GM in Sodium Chloride 0.9% 100 ML IV SCH (21:48)
[2017-10-03] MEDS: LEVOTHYROXINE 112 MCG TABLET PO SCH (05:41)
[2017-10-03 05:45] VITALS: RESP 20
[2017-10-03] MEDS: MAGNESIUM OXIDE 400 MG TABLET PO SCH (07:21)
[2017-10-03] MEDS: HYDROcodone-APAP 10 MG-325 MG TABLET PO PRN ×2 (07:21→10:19)
[2017-10-03 07:37] LABS: BASOPHILS # (AUTO) 0.06 10*3/UL; BASOPHILS % (AUTO) 0.9 % (0-1); EOSINOPHILS # (AUTO) 0.51 10*3/UL; EOSINOPHILS % (AUTO) 7.9 % (0-8); Hematocrit [HCT] 36.5 % (37.0-47.0); Hemoglobin [HGB] 11.2 g/dL (12.0-16.0); LYMPHOCYTES # (AUTO) 1.21 10*3/uL; MEAN CORPUSCULAR HEMOGLOBIN 28.8 PG (27-31); MEAN CORPUSCULAR HGB CONC 30.7 g/dL (33-37); MEAN CORPUSCULAR VOLUME 93.8 FL (81-99); MONOCYTES # (AUTO) 0.75 10*3/UL (0.3-0.8); MONOCYTES % (AUTO) 11.6 % (5-15); NEUTROPHILS # (AUTO) 3.91 10*3/UL; NEUTROPHILS % (AUTO) 60.6 % (50-80); RED BLOOD COUNT 3.89 10^6/uL (4.20-5.40)
[2017-10-03 07:45] LABS: PLATELET MORPHOLOGY COMMENT NORMAL MORPHOLOGY (NORM); RBC MORPHOLOGY COMMENT NORMAL MORPHOLOGY (NORM); WBC MORPHOLOGY COMMENT NORMAL MORPHOLOGY (NORM)
[2017-10-03 07:50] LABS: BLOOD UREA NITROGEN 18 mg/dL (7-22); SERUM ALBUMIN 3.1 g/dL (3.5-4.8)
[2017-10-03] MEDS: GABAPENTIN 100 MG CAPSULE PO SCH (08:20)
[2017-10-03] MEDS: LORATADINE 10 MG TABLET PO SCH (08:20)
[2017-10-03] MEDS: CELECOXIB 200 MG CAPSULE PO SCH (08:20)
[2017-10-03] MEDS: NORMAL SALINE 10 ML SYRINGE FLUSH IVP PRN (08:20)
[2017-10-03] MEDS: Meropenem Inj 1 GM in Sodium Chloride 0.9% 100 ML IV SCH (08:21)
[2017-10-03 08:44] VITALS: BP 116/45; TEMP 98; O2SAT 97
--- NOTE | 2017-10-03 10:04 | DCSUMMARY ---
Hospitalization Summary Hospital Course: Final Discharge Diagnosis: Current Visit Problems Problem Status Onset Code Abscess of right index finger Acute L02.511 Cellulitis and abscess of finger, unspecified Acute L03.019, L02.519 Diagnostic Data, Laboratory Data, and Procedures of Signifigance: Laboratory Results 09/28/17 09/28/17 09/28/17 Range/Units 10:59 10:59 10:59 WBC 14.90 H (4.8-10.8) 10^3/uL RBC 3.96 L (4.20-5.40) 10^6/uL Hgb 11.7 L (12.0-16.0) g/dL Hct 37.0 (37.0-47.0) % MCV 93.4 (81-99) FL MCH 29.5 (27-31) PG MCHC 31.6 L (33-37) g/dL RDW Std Deviation 51.0 H (39-50) fL RDW Coeff of Bertrand 15.2 H (11.5-14.5) % Plt Count 270 (140-350) 10*3/uL MPV 9.4 (7.4-12.2) FL Immature Gran % (Auto) 0.3 (0-5) % Neut % (Auto) 80.7 H (50-80) % Lymph % (Auto) 9.6 L (10-50) % Potter % (Auto) 9.1 (5-15) % Eos % (Auto) 0.1 (0-8) % Baso % (Auto) 0.2 (0-1) % Immature Gran # (Auto) 0.05 10*3/UL Neut # (Auto) 12.02 10*3/UL Lymph # (Auto) 1.43 10*3/uL Potter # (Auto) 1.36 H (0.3-0.8) 10*3/UL Eos # (Auto) 0.01 10*3/UL Baso # (Auto) 0.03 10*3/UL WBC Morphology Comment Normal morphology (NORM) Plt Morphology Comment Normal morphology (NORM) RBC Morph Comment Normal morphology (NORM) ESR 61 H (0-20) MM/HR Sodium (135-145) meq/L Potassium (3.8-5.2) meq/L Chloride (98-112) meq/L Carbon Dioxide (23-33) meq/L Anion Gap (5-20) BUN (7-22) mg/dL Creatinine (0.50-1.20) mg/dL Estimated GFR BUN/Creatinine Ratio (6-20) Glucose (78-110) mg/dL Calculated Osmolality (267-292) mOsm/kg Lactic Acid (0.70-2.10) MMOL/L Calcium (8.7-10.7) mg/dL Total Bilirubin (0.3-1.2) mg/dL AST (8-39) IU/L ALT (9-52) IU/L Alkaline Phosphatase (38-126) IU/L C-Reactive Protein 20.9 H (0.0-0.9) mg/dL Total Protein (6.1-8.0) g/dL Albumin (3.5-4.8) g/dL Globulin (2.50-4.10) g/dL Albumin/Globulin Ratio (1.3-2.0) mg/g Lipase (23-300) IU/L Ur Collection Type Urine Color (Y) Urine Clarity (CLEAR) Urine pH (5.0-8.5) Ur Specific [place] (1.005-1.030) Urine Protein (NEG) mg/dl Urine Glucose (UA) (NEG) mg/dL Urine Ketones (NEG) Urine Occult Blood (NEG) Urine Nitrate (NEG) Urine Bilirubin (NEG) Urine Urobilinogen (0.2) EU/dL Ur Leukocyte Esterase (NEG) Urine RBC (NONE) /hpf Urine WBC (NONE) Ur Squamous Epith Cells (NONE) Ur Renal Epithelial Cell (NONE) Urine Crystals Urine Bacteria (NONE) Urine Casts (NONE) Urine Mucus (NONE) Urine Trichomonas (NONE) Urine Yeast (NONE) Ur Culture Indicated? 09/28/17 09/28/17 09/28/17 Range/Units 11:00 11:00 13:20 WBC (4.8-10.8) 10^3/uL RBC (4.20-5.40) 10^6/uL Hgb (12.0-16.0) g/dL Hct (37.0-47.0) % MCV (81-99) FL MCH (27-31) PG MCHC (33-37) g/dL RDW Std Deviation (39-50) fL RDW Coeff of Bertrand (11.5-14.5) % Plt Count (140-350) 10*3/uL MPV (7.4-12.2) FL Immature Gran % (Auto) (0-5) % Neut % (Auto) (50-80) % Lymph % (Auto) (10-50) % [place] % (Auto) (5-15) % Eos % (Auto) (0-8) % Baso % (Auto) (0-1) % Immature Gran # (Auto) 10*3/UL Neut # (Auto) 10*3/UL Lymph # (Auto) 10*3/uL [place] # (Auto) (0.3-0.8) 10*3/UL Eos # (Auto) 10*3/UL Baso # (Auto) 10*3/UL WBC Morphology Comment (NORM) Plt Morphology Comment (NORM) RBC Morph Comment (NORM) ESR (0-20) MM/HR Sodium 142 (135-145) meq/L Potassium 4.0 (3.8-5.2) meq/L Chloride 106 (98-112) meq/L Carbon Dioxide 23 (23-33) meq/L Anion Gap 13 (5-20) BUN 25 H (7-22) mg/dL Creatinine 1.0 (0.50-1.20) mg/dL Estimated GFR BUN/Creatinine Ratio 25.00 H (6-20) Glucose 100 (78-110) mg/dL Calculated Osmolality 297.0 H (267-292) mOsm/kg Lactic Acid 1.3 (0.70-2.10) MMOL/L Calcium 9.7 (8.7-10.7) mg/dL Total Bilirubin 1.0 (0.3-1.2) mg/dL AST 26 (8-39) IU/L ALT 28 (9-52) IU/L Alkaline Phosphatase 71 (38-126) IU/L C-Reactive Protein (0.0-0.9) mg/dL Total Protein 7.5 (6.1-8.0) g/dL Albumin 3.8 (3.5-4.8) g/dL Globulin 3.7 (2.50-4.10) g/dL Albumin/Globulin Ratio 1.00 L (1.3-2.0) mg/g Lipase 10 L (23-300) IU/L Ur Collection Type Cath specimen Urine Color Dark yellow (Y) Urine Clarity Slightly cloudy A (CLEAR) Urine pH 5.5 (5.0-8.5) Ur Specific [place] 1.025 (1.005-1.030) Urine Protein 30 A (NEG) mg/dl Urine Glucose (UA) Negative (NEG) mg/dL Urine Ketones Trace A (NEG) Urine Occult Blood Trace-intact H (NEG) Urine Nitrate Positive A (NEG) Urine Bilirubin Small (NEG) Urine Urobilinogen 0.2 (0.2) EU/dL Ur Leukocyte Esterase Negative (NEG) Urine RBC 0 (NONE) /hpf Urine WBC 1-3 (NONE) Ur Squamous Epith Cells Moderate (NONE) Ur Renal Epithelial Cell None (NONE) Urine Crystals None Urine Bacteria Rare (NONE) Urine Casts None (NONE) Urine Mucus Many (NONE) Urine Trichomonas None (NONE) Urine Yeast None (NONE) Ur Culture Indicated? Culture set 09/29/17 10/03/17 10/03/17 Range/Units 07:24 07:33 07:33 WBC 8.71 6.46 (4.8-10.8) 10^3/uL RBC 3.59 L 3.89 L (4.20-5.40) 10^6/uL Hgb 10.6 L 11.2 L (12.0-16.0) g/dL Hct 33.9 L 36.5 L (37.0-47.0) % MCV 94.4 93.8 (81-99) FL MCH 29.5 28.8 (27-31) PG MCHC 31.3 L 30.7 L (33-37) g/dL RDW Std Deviation 51.2 H 50.3 H (39-50) fL RDW Coeff of Bertrand 15.3 H 15.1 H (11.5-14.5) % Plt Count 236 280 (140-350) 10*3/uL MPV 9.3 9.0 (7.4-12.2) FL Immature Gran % (Auto) 0.2 0.3 (0-5) % Neut % (Auto) 70.4 60.6 (50-80) % Lymph % (Auto) 15.4 18.7 (10-50) % Potter % (Auto) 11.9 11.6 (5-15) % Eos % (Auto) 1.8 7.9 (0-8) % Baso % (Auto) 0.3 0.9 (0-1) % Immature Gran # (Auto) 0.02 0.02 10*3/UL Neut # (Auto) 6.12 3.91 10*3/UL Lymph # (Auto) 1.34 1.21 10*3/uL Potter # (Auto) 1.04 H 0.75 (0.3-0.8) 10*3/UL Eos # (Auto) 0.16 0.51 10*3/UL Baso # (Auto) 0.03 0.06 10*3/UL WBC Morphology Comment Normal morphology Normal morphology (NORM) Plt Morphology Comment Normal morphology Normal morphology (NORM) RBC Morph Comment Normal morphology Normal morphology (NORM) ESR (0-20) MM/HR Sodium 143 (135-145) meq/L Potassium 4.2 (3.8-5.2) meq/L Chloride 108 (98-112) meq/L Carbon Dioxide 26 (23-33) meq/L Anion Gap 9 (5-20) BUN 18 (7-22) mg/dL Creatinine 1.0 (0.50-1.20) mg/dL Estimated GFR Trucker BUN/Creatinine Ratio 18.00 (6-20) Glucose 81 (78-110) mg/dL Calculated Osmolality 296.0 H (267-292) mOsm/kg Lactic Acid (0.70-2.10) MMOL/L Calcium 8.8 (8.7-10.7) mg/dL Total Bilirubin 0.5 (0.3-1.2) mg/dL AST 24 (8-39) IU/L ALT 37 (9-52) IU/L Alkaline Phosphatase 74 (38-126) IU/L C-Reactive Protein (0.0-0.9) mg/dL Total Protein 6.4 (6.1-8.0) g/dL Albumin 3.1 L (3.5-4.8) g/dL Globulin 3.3 (2.50-4.10) g/dL Albumin/Globulin Ratio 0.90 L (1.3-2.0) mg/g Lipase (23-300) IU/L Ur Collection Type Urine Color (Y) Urine Clarity (CLEAR) Urine pH (5.0-8.5) Ur Specific [place] (1.005-1.030) Urine Protein (NEG) mg/dl Urine Glucose (UA) (NEG) mg/dL Urine Ketones (NEG) Urine Occult Blood (NEG) Urine Nitrate (NEG) Urine Bilirubin (NEG) Urine Urobilinogen (0.2) EU/dL Ur Leukocyte Esterase (NEG) Urine RBC (NONE) /hpf Urine WBC (NONE) Ur Squamous Epith Cells (NONE) Ur Renal Epithelial Cell (NONE) Urine Crystals Urine Bacteria (NONE) Urine Casts (NONE) Urine Mucus (NONE) Urine Trichomonas (NONE) Urine Yeast (NONE) Ur Culture Indicated? Microbiology 09/28/17 11:00 Blood Blood Culture - Preliminary NO GROWTH AFTER 48 HOURS 09/28/17 10:59 Blood Blood Culture - Preliminary NO GROWTH AFTER 48 HOURS 09/28/17 13:20 Urine,Catheterized Urine Culture - Final History and Physical pertinent to Admission: Past Medical History Medical History: 1. Osteoarthritis. 2. Rheumatoid arthritis. 3. History of cerebrovascular accident with a history of a right-sided carotid endarterectomy. 4. Obstructive sleep apnea intolerant of CPAP. 5. Hypercholesterolemia. 6. Hypothyroidism Surgical History: 1. Carotid endarterectomy, right-sided. 2. Appendectomy. 3. Tonsillectomy. 4. 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 Greenberg orthopedic surgery which performed a washout and dressing changes. According to Dr. 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 It was sent to [place] for sensitivities Dr. Rondon recommended meropenem twice a day until cultures come back I discussed the case with Dr. Greenberg and the patient which agrees hand does look improved there is no swelling or erythema or pain on palpation dressing is in place On the date of discharge, the patient was examined: Gen.: No acute distress, alert, nontoxic Heart: Regular rate and rhythm, no murmurs, clicks, gallops, or rubs Lungs: Clear to auscultation bilaterally, breathing is nonlabored Abdomen/GI: Normal tones on auscultation, soft, nontender, nondistended Musculoskeletal/extremities: No clubbing, cyanosis, or edema Vitals reviewed and are listed below Vital Signs (24 hrs) Temp Pulse Pulse Pulse Resp BP Pulse Ox 10/03/17 08:43 98.0 F 75 20 116/45 97 10/03/17 07:32 74 20 10/03/17 05:00 97.3 F 60 20 123/46 92 10/03/17 00:22 97.7 F 73 18 120/51 95 10/02/17 21:00 98.2 F 62 20 117/46 90 10/02/17 19:00 71 67 10/02/17 17:00 97.9 F 67 18 163/60 92 10/02/17 12:59 98.4 F 71 16 150/57 92 Assessment and Plan: 1. As per discharge assessments above 2. Disposition: Home Greenberg appointment will be made on Thursday 3. Condition on discharge, stable and improved. 4. Diet: regular diet 5. Activities: resume normal activities 6. Follow-Up: 1. PCP 2. 7. Medications at the Time of Discharge: Home Medications Medication Instructions Recorded Confirmed Type Calcium Carbonate/Vitamin D3 2 ea PO QD tab 12/26/14 09/28/17 History [Calcium 600 with Vit D Chew Tb] Magnesium 1 tab PO BID 01/15/15 09/28/17 History Aspirin 1 tab PO QPM PRN tab 06/11/15 09/28/17 History Cetirizine HCl [Zyrtec] 10 mg PO QD cap 07/28/16 09/28/17 History Celecoxib [Celebrex] 1 cap PO BID #180 cap 04/28/17 09/28/17 Rx Gabapentin 1 cap PO TID #270 cap 04/28/17 09/28/17 Rx Levothyroxine Sodium [Synthroid] 1 tab PO QAM #90 tab 04/28/17 09/28/17 Rx Pravastatin Sodium [Pravachol] 1 tab PO QPM #90 tab 04/28/17 09/28/17 Rx hydrocodone 10 mg-acetaminophen 1 tab PO Q4-6H #150 tab 07/30/17 09/28/17 Clinic 325 mg tablet hydrocodone 10 mg-acetaminophen 1 tab PO Q4-6H PRN #150 tab 09/01/17 09/28/17 Rx 325 mg tablet Magnesium Oxide [Mag-Ox] 400 mg PO C BK tab 10/03/17 Rx Meropenem Inj [Merrem Inj] 1 gm IV BID@0830,2200 #10 vial 10/03/17 Rx 3 Generic Name Dose Route Start Last Admin Trade Name Freq PRN Reason Stop Dose Admin Acetaminophen 650 mg 09/29/17 18:58 Tylenol PO Q6H PRN Pain or Fever Hydrocodone Bitart/Acetaminophen 1 tab 09/29/17 18:58 10/03/17 07:21 [place] 10/325 Tab PO 1 tab Q4H PRN Administration Pain Celecoxib 200 mg 09/29/17 21:00 10/03/17 08:20 Celebrex PO 200 mg BID HAYDEN Administration Gabapentin 100 mg 09/29/17 21:00 10/03/17 08:20 Neurontin PO 100 mg TID HAYDEN Administration Heparin Sodium (Porcine) 300 - 500 unit 10/02/17 10:31 10/02/17 14:12 Heparin Lock Inj (For Central Line) IVP 500 unit BID PRN Administration Flush Hydromorphone HCl 1 mg 09/29/17 18:58 10/01/17 19:16 Dilaudid Inj IVP 1 mg Q4H PRN Administration Pain Sodium Chloride 25 mls @ 200 mls/hr 09/29/17 18:58 Normal Saline 0.9% IV .Post Infusion PRN No Primary IV for Flush ONLY Meropenem 1 gm/ Sodium 100 mls @ 200 mls/hr 10/02/17 22:00 10/03/17 08:21 Chloride IV 200 mls/hr BID@0830,2200 HAYDEN Administration Levothyroxine Sodium 112 mcg 09/30/17 05:30 10/03/17 05:41 Synthroid PO 112 mcg DAILY@0530 HAYDEN Administration Lidocaine HCl 0.5 ml 09/29/17 18:58 Lidocaine Buffered Inj SUBD ONCE PRN IV Starts Lidocaine HCl 0 mg 10/02/17 10:31 Xylocaine Inj 1% SUBCUT ONCE PRN picc line placement Lidocaine HCl 0 mg 10/02/17 10:31 Xylocaine Inj 2% SUBCUT ONCE PRN picc line placement Loratadine 10 mg 09/30/17 09:00 10/03/17 08:20 Claritin PO 10 mg DAILY HAYDEN Administration Magnesium Oxide 400 mg 09/30/17 07:00 10/03/17 07:21 Mag-Ox PO 400 mg C BK HAYDEN Administration Ondansetron HCl 4 mg 09/29/17 18:58 Zofran Inj IVP Q4H PRN NAUSEA / VOMITING Pravastatin Sodium 40 mg 09/29/17 21:00 10/02/17 20:48 Pravachol PO 40 mg BEDTIME AHYDEN Administration Sodium Chloride 5 - 20 ml 09/29/17 18:58 10/03/17 08:20 Saline Flush IVP 10 ml BID PRN Administration Flush 8. Time, care, counseling and coordination of care for this discharge is greater than 30 minutes. Exam - Vitals Vital Signs: Vital Signs Temperature 98.0 F Temperature Source Oral Pulse Rate [Pulse Oximeter] 75 Pulse Rate [Apical] 74 Pulse Rate [Pulse Oximeter 71 Bilateral Radial] Pulse Rate 68 Respiratory Rate 20 Blood Pressure [Right Arm] 116/45 Blood Pressure [Left Arm] 160/65 Blood Pressure 153/72 Pulse Ox 97 Oxygen Flow Rate 1 Oxygen Delivery Method Room Air Height 5 ft Weight 191 lb 12.8 oz Patient Problems - Patient Problem List (1) Abscess of right index finger Current Visit: Yes Status: Acute Code(s): L02.511 - Cutaneous abscess of right hand Category: Medical
--- NOTE | 2017-10-03 11:23 | ORTHO.PROG ---
Last Taken Vital Signs: Vital Signs - Last Taken Temperature 98.0 F 10/03/17 08:43 Pulse Rate 75 10/03/17 08:43 Respiratory Rate 20 10/03/17 08:43 Blood Pressure 116/45 10/03/17 08:43 Pulse Ox 97 10/03/17 08:43 Subjective: Patient states her pain is less. She notes is feeling better and has no constitutional symptoms. Objective: Examination with the drains removed show that there is no significant drainage from any of the wounds maybe a little serous he from the radial aspect of the more distal incision which was packed in this is with manipulation of the tissue but very minimal the essentially negligible. Laboratory Results 10/03/17 10/03/17 Range/Units 07:33 07:33 WBC 6.46 (4.8-10.8) 10^3/uL RBC 3.89 L (4.20-5.40) 10^6/uL Hgb 11.2 L (12.0-16.0) g/dL Hct 36.5 L (37.0-47.0) % MCV 93.8 (81-99) FL MCH 28.8 (27-31) PG MCHC 30.7 L (33-37) g/dL RDW Std Deviation 50.3 H (39-50) fL RDW Coeff of Bertrand 15.1 H (11.5-14.5) % Plt Count 280 (140-350) 10*3/uL MPV 9.0 (7.4-12.2) FL Immature Gran % (Auto) 0.3 (0-5) % Neut % (Auto) 60.6 (50-80) % Lymph % (Auto) 18.7 (10-50) % [place] % (Auto) 11.6 (5-15) % Eos % (Auto) 7.9 (0-8) % Baso % (Auto) 0.9 (0-1) % Immature Gran # (Auto) 0.02 10*3/UL Neut # (Auto) 3.91 10*3/UL Lymph # (Auto) 1.21 10*3/uL [place] # (Auto) 0.75 (0.3-0.8) 10*3/UL Eos # (Auto) 0.51 10*3/UL Baso # (Auto) 0.06 10*3/UL WBC Morphology Comment Normal morphology (NORM) Plt Morphology Comment Normal morphology (NORM) RBC Morph Comment Normal morphology (NORM) Sodium 143 (135-145) meq/L Potassium 4.2 (3.8-5.2) meq/L Chloride 108 (98-112) meq/L Carbon Dioxide 26 (23-33) meq/L Anion Gap 9 (5-20) BUN 18 (7-22) mg/dL Creatinine 1.0 (0.50-1.20) mg/dL Estimated GFR Cryogenics Engineer BUN/Creatinine Ratio 18.00 (6-20) Glucose 81 (78-110) mg/dL Calculated Osmolality 296.0 H (267-292) mOsm/kg Calcium 8.8 (8.7-10.7) mg/dL Total Bilirubin 0.5 (0.3-1.2) mg/dL AST 24 (8-39) IU/L ALT 37 (9-52) IU/L Alkaline Phosphatase 74 (38-126) IU/L Total Protein 6.4 (6.1-8.0) g/dL Albumin 3.1 L (3.5-4.8) g/dL Globulin 3.3 (2.50-4.10) g/dL Albumin/Globulin Ratio 0.90 L (1.3-2.0) mg/g Microbiology 09/28/17 11:00 Blood Blood Culture - Final NO GROWTH AFTER 5 DAYS 09/28/17 10:59 Blood Blood Culture - Final NO GROWTH AFTER 5 DAYS 09/28/17 13:20 Urine,Catheterized Urine Culture - Final Patient growing light growth of gram-negative paulino but unable to clearly identify , this was sent to the [facility] for further identification and sensitivities. Infectious disease recommended her current antibiotic until identified. Assessment: Abscess right index finger seems to be improving nicely on current antibiotics and wound care Plan: Patient will continue on the IV antibiotic will see infectious disease and will follow-up with physical therapy for wound care and follow-up with us for continued treatment.
--- NOTE | 2017-10-06 11:29 | OT AM DAY ---
Diagnosis : Right Hand Surgery AM - Occupational Therapy S: The patient states she wants to go home. She states she will be able to return tomorrow morning for wound care. O: The patient was seen for wound dressing for medial and lateral second digit. The wound was cleaned, packed, and covered with Coban and Kerlix. A: The patient's wound did not display much drainage. P: Patient will be discharged to home. The patient will return tomorrow as an outpatient for wound care. REGINA
== END 2017-10-03 10:58 | disposition home or self-care (01) | DRG 603 ==
LOC: ER 10:32 → MED/SURG 15:34 → OPS 09-29 16:38 → MED/SURG 09-29 18:40
PROVIDERS: ADMIT Internal Medicine; ATTEND Internal Medicine

== ENCOUNTER 2018-02-22 09:02 | Inpatient (IN) ==
[2018-02-22] MEDS ORDERED: Sodium Chloride 0.9% 1,000 ML PRIMARY IV ONE (09:40)
[2018-02-22] MEDS ORDERED: NORMAL SALINE 10 ML SYRINGE FLUSH IVP PRN ×3 (09:40→13:30)
[2018-02-22 10:03] LABS: VENOUS PH 7.44 (7.32-7.42)
[2018-02-22 10:07] LABS: Hematocrit [HCT] 38.6 % (37.0-47.0); Hemoglobin [HGB] 11.8 g/dL (12.0-16.0); MEAN CORPUSCULAR HEMOGLOBIN 27.4 PG (27-31); MEAN CORPUSCULAR HGB CONC 30.6 g/dL (33-37); MEAN CORPUSCULAR VOLUME 89.8 FL (81-99); MEAN PLATELET VOLUME 8.7 FL (7.4-12.2)
--- NOTE | 2018-02-22 10:10 | EKG ---
[address] [address] Measurements Intervals [place] Rate: 78 P: 90 [place]: 163 QRS: 50 QRSD: 86 T: 31 QT: 359 QTc: 392 Interpretive Statements SINUS RHYTHM Compared to ECG 03/16/2015 17:57:33 No significant changes Electronically Signed On 02-22-18 14:44:28 MDT by Matheus Lomax [email or web address]
[2018-02-22 10:24] LABS: BLOOD UREA NITROGEN 24 mg/dL (7-22); BUN/CREATININE RATIO 18.46 (6-20); SERUM ALBUMIN 3.4 g/dL (3.5-4.8)
[2018-02-22 10:29] LABS: PLATELET MORPHOLOGY COMMENT NORMAL MORPHOLOGY (NORM); RBC MORPHOLOGY COMMENT NORMAL MORPHOLOGY (NORM)
[2018-02-22 10:30] LABS: WBC MORPHOLOGY COMMENT SEE COMMENTS (NORM)
[2018-02-22 10:34] LABS: BAND NEUTROPHILS % 10 % (0-10); BASOPHILS % (MANUAL) 0 % (0-1); EOSINOPHILS % (MANUAL) 0 % (0-8); METAMYELOCYTES % 0 %; MONOCYTES % (MANUAL) 9 % (0-12); MYELOCYTES % 0 %; NEUTROPHILS % (MANUAL) 55 % (50-80); PROMYELOCYTES % 0 %
[2018-02-22 10:41] LABS: BILIRUBIN,URINE SMALL (NEG); CLARITY,URINE TURBID (CLEAR); COLOR,URINE YELLOW (Y); GLUCOSE, URINE (UA) NEGATIVE (NEG); OCCULT BLOOD,URINE LARGE (NEG); PH,URINE 5.5 (5.0-8.5); PROTEIN,URINE >300 mg/dl (NEG); UROBILINOGEN,URINE 0.2 EU/dL (0.2)
[2018-02-22 10:54] LABS: URINE SAMPLE TYPE CATH SPECIMEN
[2018-02-22 10:55] LABS: WBC,URINE >100
--- NOTE | 2018-02-22 11:25 | DI ---
MRI BRAIN SCAN WITHOUT IV CONTRAST, 02/22/2018 9:42 AM: Clinical History: Confusion; stroke symptoms. Previous Exam: None at this facility. Sequences: Sagittal T1; Axial RONALDO T2 and FLAIR. Axial diffusion weighted images with ADC mapping were also performed. The fourth ventricle is of normal size, shape, position and contour. The third and both lateral ventr icles are dilated and the third ventricle and the left lateral ventricle are of normal position, shap e, and contour. The occipital horn of the right lateral ventricle is dilated secondary to an old infa rct in the right occipital lobe. There is an old infarct near the central sulcus high on the convexit y. Diffusion-weighted imaging with ADC mapping is otherwise normal. There is no evidence of an acute hemorrhagic or bland infarct. There is moderately severe to severe cerebral and cerebellar atrophy. S ignal void is present in the superior sagittal sinus indicating that sinus is patent. There are no ex tracerebral mantels or shift of the midline structures. The paranasal sinuses are normal. Readin. There is no evidence of an acute hemorrhagic or bland infarct. 2. There are focal old infarcts involving the region of the right central sulcus near the convexity as well as in the right occipital lobe. These may represent branch occlusions either secondary to bryan que disease or embolic disease. 3. Moderately severe to severe cerebral and cerebellar atrophy. 4. Diffusion-weighted imaging with ADC mapping is otherwise normal.
--- NOTE | 2018-02-22 12:03 | DI ---
AP /LATERAL CHEST X-RAY, 02/22/2018 9:40 AM : Clinical History: Weakness. Previous Exam: 10/10/2011. There is no acute soft tissue or bony abnormality. There is mild cardiomegaly. There is a diffuse int erstitial pattern that almost exclusively involves the right lung. This appearance is new since the p revious exam. It is difficult to determine whether this is purely a chronic interstitial disease proc ess or if there is a combined acute and chronic interstitial disease pattern present. Mediastinal str uctures are normal. There are no pulmonary nodules. Readin. There is an interstitial disease pattern present that predominantly involves the right lung. If t his patient is febrile, then this may represent an interstitial pneumonia. It would be unusual becaus e there is almost exclusive involvement of the right lung. 2. Cardiomegaly. Presence of CHF would be difficult to ascertain in this particular instance.
--- NOTE | 2018-02-22 12:11 | DI ---
AP PELVIS and RIGHT HIP, 02/22/2018 9:44 AM: Clinical History: Right hip pain. Previous Exam: 07/17/2015. There is no soft tissue abnormality. No acute fracture of the pelvis is identified, although there ma y have been an old fracture of the left superior pubic ramus. In addition, there is sclerosis involvi ng the right iliac wing at the sacroiliac joint. There is a step off between the inferior margin of t he sacral component of the SI joint and the iliac component, suggesting there may have been a diastat ic injury to the right sacroiliac joint. This appearance has progressed since the last exam. 2 views of the right hip are normal. No arthritic disease is identified. There is osteoporosis. Readin. The right hip is normal. There is osteoporosis. 2. There is no acute fracture of the pelvis. There may have been an old fracture of the left superio r pubic ramus. Arthritic changes are present in the right sacroiliac joint and this patient may have had a previous diastatic injury to the right SI joint. 3. If symptoms persist at the affected site, then follow-up films are recommended in 7-10 days.
[2018-02-22] MEDS ORDERED: HYDROcodone-APAP 10 MG-325 MG TABLET PO PRN (12:56)
[2018-02-22] MEDS ORDERED: CALCIUM CARBONATE 500 MG (TUMS) CHEWABLE TABLET PO PRN (12:59)
[2018-02-22] MEDS ORDERED: ONDANSETRON 4 MG/2 ML VIAL IVP PRN (12:59)
[2018-02-22] MEDS ORDERED: ACETAMINOPHEN 325 MG TABLET PO PRN ×2 (12:59→20:56)
[2018-02-22] MEDS ORDERED: LIDOCAINE W/ SODIUM BICARB 0.5 ML SYR SUBD PRN (12:59)
[2018-02-22] MEDS ORDERED: DOCUSATE 100 MG CAPSULE PO PRN (12:59)
[2018-02-22] MEDS ORDERED: CALCIUM CARBONATE PO SCH (13:00)
[2018-02-22] MEDS ORDERED: HEPARIN 5000 UNIT/1 ML SUBCUT SCH (13:00)
[2018-02-22] MEDS ORDERED: Lactated Ringers 1,000 ML PRIMARY IV SCH (13:00)
[2018-02-22] MEDS ORDERED: PANTOPRAZOLE 40 MG TABLET PO SCH (13:00)
[2018-02-22] MEDS ORDERED: Pravastatin Tab 40 MG TAB PO SCH ×2 (13:00→21:00)
[2018-02-22] MEDS ORDERED: LEVOTHYROXINE 112 MCG TABLET PO SCH (13:00)
[2018-02-22] MEDS ORDERED: VIT D TB PO SCH (13:00)
[2018-02-22] MEDS ORDERED: TAMSULOSIN 0.4 MG CAPSULE PO SCH (13:00)
[2018-02-22] MEDS ORDERED: VITAMIN D3 PO SCH (13:00)
--- NOTE | 2018-02-22 13:04 | PDOC ---
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 She denies any chest pain nausea or vomiting but she does feel overall weak or she does have some dizziness we looked up some side effects of medication and we are stopping her gabapentin since she does not know why she is taking it and also she has some muscle aches and confusion which could be caused by the statin and this family decided to hold this as well. They will discuss it further with her primary care physician of the patient can come off these medications Past Medical History Medical History: 1. Osteoarthritis. 2. Rheumatoid arthritis. 3. History of cerebrovascular accident with a history of a right-sided carotid endarterectomy. 4. Obstructive sleep apnea intolerant of CPAP. 5. Hypercholesterolemia. 6. Hypothyroidism Surgical History: 1. Carotid endarterectomy, right-sided. 2. Appendectomy. 3. Tonsillectomy. 4. 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 [place] Tobacco Use: Current Some Day Smoker In the Past 12 Months, Have Used or Abuse Any of the Following Substance: None Medication / Allergies Home Medications: Home Medications 3 Medication Instructions Recorded Confirmed Type hydrocodone 10 mg-acetaminophen 1 tab PO Q4-6H PRN #150 tab 02/15/18 02/22/18 Rx 325 mg tablet Aspirin [Lite Coat Aspirin] 325 mg PO DAILY 02/22/18 02/22/18 History Calcium Carbonate [Tums] 1 - 2 tab PO Q6H PRN tab.chew 02/22/18 Rx Calcium Carbonate/Vitamin D3 2 ea PO QD 02/22/18 Rx [Calcium 600 with Vit D Chew Tb] Docusate Sodium [Colace] 100 mg PO BID PRN cap 02/22/18 Rx Heparin Inj 5,000 unit SUBCUT Q8H vial 02/22/18 Rx Levothyroxine Sodium [Synthroid] 112 mcg PO DAILY@0530 tab 02/22/18 Rx Magnesium Oxide [Mag-Ox] 400 mg PO C BK tab 02/22/18 Rx Multivits W-Fe,Other Min [Central 1 tab PO DAILY 02/22/18 Rx [employer]] Normal Saline Flush [Saline Flush] 5 - 20 ml IVP BID PRN syringe 02/22/18 Rx Normal Saline Flush [Saline Flush] 5 - 20 ml IVP ONCE (ED) PRN 02/22/18 Rx syringe Normal Saline Flush [Saline Flush] 5 - 20 ml IVP ONCE (ED) PRN 02/22/18 Rx syringe Pantoprazole Sodium [Protonix] 40 mg PO AC BK tab 02/22/18 Rx Tamsulosin HCl [Flomax] 0.4 mg PO BEDTIME cap 02/22/18 Rx Ubidecarenone [Coq-10] 400 mg PO DAILY 02/22/18 Rx cefTRIAXone Inj [Rocephin Inj] 2 gm IV Q24H vial 02/22/18 Rx predniSONE Tab [Deltasone Tab] 20 mg PO DAILY tab 02/22/18 Rx Allergies/Adverse Reactions: Allergies 3 Allergy/AdvReac Type Severity Reaction Status Date / Time adhesive AdvReac Intermediate RASH Verified 02/22/18 13:43 methotrexate AdvReac Mild vomiting Verified 02/22/18 13:43 blueberry AdvReac unknown Verified 02/22/18 13:43 strawberry AdvReac RASH Verified 02/22/18 13:43 Review of Systems - Review of Systems All Systems: Reviewed & No Additional Complaints Except as Stated - Respiratory Respiratory: DENIES: Negative System Review, Cough, Sputum, Dyspnea At Rest, Dyspnea with Exertion, Pleuritic Pain, Hemoptysis, Wheezing, Other, See HPI - Cardiovascular Cardiovascular: DENIES: Negative System Review, Chest Pain, Edema, Syncope, Palpitations, Orthopnea, Paroxysmal Nocturnal Dyspnea, Other, See HPI - Gastrointestinal Gastrointestinal / Abdominal: DENIES: Negative System Review, Nausea, Vomiting, Diarrhea, Constipation, Abdominal Pain, Bloody Stool, Poor Appetite, Heartburn, Regurgitation, Bloating, Lactose Intolerance, Melena, Bright Red Blood per Rectum, Other, See HPI - Musculoskeletal Musculoskeletal: REPORTS: Muscle Pain - Neurological Neurologic: REPORTS: Dizziness. DENIES: Negative System Review, Headache, Numbness/Paresthesia, Tremors, Weakness, Seizures, Head Trauma, LOC, Confusion, Memory Loss, Difficulty Walking, Incoordination, Other, See HPI Exam - Vitals Vital Signs: Vital Signs Temperature 98.8 F Temperature Source Temporal Artery Scan Pulse Rate [Pulse Oximeter] 78 Respiratory Rate 18 Blood Pressure [Left Arm] 110/53 Pulse Ox 91 Oxygen Delivery Method Room Air Height 5 ft Weight 175 lb - General General Appearance: No Acute Distress - Neck Neck Exam: Normal Inspection, Full ROM, No Tenderness, No Lymphadenopathy, No Thyromegaly, JVP is not Raised - Respiratory Respiratory Exam: POSITIVE: Clear to Auscultation - Bilaterally, Breathing Non Labored, Normal To Percussion, Normal to Percussion and Palpation - Cardiovascular Cardiovascular Exam: POSITIVE: RRR, No Murmur, No Clicks, No Gallops, No Rubs, PMI Non-Displaced - GI/Abdominal GI/Abdominal Exam: POSITIVE: Normal Bowel Sounds, Soft - Rectal Rectal Exam: POSITIVE: Deferred - External Exam: POSITIVE: Deferred Exam: POSITIVE: Deferred - Extremities Extremities Exam: POSITIVE: Normal Inspection, Full ROM, Normal Capillary Refill , No Clubbing Present, No Edema Present, No Cyanosis Present, Negative Whitley's sign, Dosalis Pedis Pulses - Stong & Regular Results - Labs CBC and BMP: 02/22/18 09:55 02/22/18 09:55 Assessment and Plan - Patient Problems (1) UTI (urinary tract infection) Current Visit: Yes Status: Acute Code(s): N39.0 - Urinary tract infection, site not specified (2) CHF (congestive heart failure) Current Visit: Yes Status: Acute Code(s): I50.9 - Heart failure, unspecified (3) Falls frequently Current Visit: Yes Status: Acute Code(s): R29.6 - Repeated falls - Assessment / Plan Additional Assessment/Plan Details: #1 urinary tract infection we will start ceftriaxone since she has renal failure and not ceftazidime. #2 multiple falls this could be multifactorial with some confusion muscle aches and dizziness we will hold the statin and gabapentin #3 acute renal failure will hydrate gently with 75 an hour #46mild elevated BNP not shortness of breath at this time #5 abnormal x-ray I ordered a CT scan of her chest Discussed the CODE STATUS with the family and both son and daughter and the patient and would like to be DO NOT RESUSCITATE if her heart stops or she stops breathing at nature take its course a do not attempt to resuscitate or intubate nursing staff present
--- NOTE | 2018-02-22 15:16 | PDOC ---
General Adult HPI - General Chief Complaint: Fall Stated Complaint: DISORIENTED, FALLING Date Seen by Provider: 02/22/18 Time Seen by Provider: 12:55 Source: POSITIVE: Patient, Other (Daughter) Exam Limitations: POSITIVE: No limitations Nurse's Notes Reviewed & Considered: Yes - History of Present Illness Initial Comment: The patient is an 82-year-old female who is brought by private vehicle to the emergency room by her daughter. The patient lives with her daughter and the daughter is the patient's primary care provider. The patient and daughter states that she has been feeling very "weak and confused "for the last 3 days. Daughter reports that the patient has fallen 4 times in the last 4 days and she did sustain a contusion to her right shoulder as result of her fall. She also has some discomfort to her right hip following a fall. The patient has had loss of control of urinary and bowel incontinence. Patient has in the past had some strokes which have left her with some left-sided weakness. Patient has chronic deviation of her head to the left, which the daughter states occurred after one of her strokes. Patient states that she feels "foggy "daughter reports that the patient is not eating well. Patient has a history of rheumatoid arthritis and has had a right carotid endarterectomy. No known fevers or chills. No vomiting, melena, hematochezia, hematemesis, or dysuria. Daughter thinks that patient might be somewhat weaker on the left side then the patient normally is. Daughter reports that at times the patient will make inappropriate statements. Have you received a tetanus shot in the past 10 years?: No Body Location Affected: REPORTS: Lower Extremity (R) (Some discomfort to right hip after fall), Other (As above) Timing: REPORTS: Gradual, Getting Worse Duration: <1 week (3 days, approximately) Severity: Moderate Quality: REPORTS: "Pain" (Some pain posterior aspect right hip from fall) Context: REPORTS: Recent Trauma (As above), Other (As above) Modifying Factors: improves with: Nothing Associated Symptoms: Fecal and urinary incontinence Similar Symptoms Previously: No Recent Care Received: REPORTS: Denies Any Prior Injuries Related to Current Complaint?: No - Patient Home Medications Home Medications: Home Medications hydrocodone 10 mg-acetaminophen 325 mg tablet 1 tab PO Q4-6H PRN #150 tab Aspirin [Lite Coat Aspirin] 325 mg PO DAILY 02/22/18 Calcium Carbonate [Tums] 1 - 2 tab PO Q6H PRN tab.chew 02/22/18 Calcium Carbonate/Vitamin D3 [Calcium 600 with Vit D Chew Tb] 2 ea PO QD Docusate Sodium [Colace] 100 mg PO BID PRN cap 02/22/18 Heparin Inj 5,000 unit SUBCUT Q8H vial 02/22/18 Levothyroxine Sodium [Synthroid] 112 mcg PO DAILY@0530 tab 02/22/18 Magnesium Oxide [Mag-Ox] 400 mg PO C BK tab 02/22/18 Multivits W-Fe,Other Min [Central [employer]] 1 tab PO DAILY 02/22/18 Normal Saline Flush [Saline Flush] 5 - 20 ml IVP BID PRN syringe 02/22/18 Normal Saline Flush [Saline Flush] 5 - 20 ml IVP ONCE (ED) PRN syringe Normal Saline Flush [Saline Flush] 5 - 20 ml IVP ONCE (ED) PRN syringe Pantoprazole Sodium [Protonix] 40 mg PO AC BK tab 02/22/18 Tamsulosin HCl [Flomax] 0.4 mg PO BEDTIME cap 02/22/18 Ubidecarenone [Coq-10] 400 mg PO DAILY 02/22/18 cefTRIAXone Inj [Rocephin Inj] 2 gm IV Q24H vial 02/22/18 predniSONE Tab [Deltasone Tab] 20 mg PO DAILY tab 02/22/18 - Patient Allergies Allergies/Adverse Reactions: Allergies 3 Allergy/AdvReac Type Severity Reaction Status Date / Time adhesive AdvReac Intermediate RASH Verified 02/22/18 13:43 methotrexate AdvReac Mild vomiting Verified 02/22/18 13:43 blueberry AdvReac unknown Verified 02/22/18 13:43 strawberry AdvReac RASH Verified 02/22/18 13:43 Past Medical History - heen HEENT History: Cataracts, Hard of Hearing, Dentures/Partials Cardiovascular History: Hyperlipidemia Additional Cardiovasular History: RIGHT CAROTID ENDARTERECTOMY 2011 Respiratory History: Shortness of Breath, Sleep Apnea, Snoring Additional Respiratory History: recommended to use home o2 patient refused Gastrointestinal History: Other (please comment) Additional Gastrointestinal History: PARTIAL BOWEL OBSTRUCTION 2011 Genitourinary History: Denies History Endocrine History: Hypothyroidism Musculoskeletal History: Arthritis, Osteoporosis, Rheumatoid Arthritis, Muscle Weakness, Limited ROM, Joint Pain, Physical Limitation, Osteoarthritis Prosthesis or Implant: No Neurological History: CVA, Motion Sickness Additional Neurological History: 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, BALANCE ISSUES Blood Disorders: Denies History Psychiatric History: Denies History History of Sexually Transmitted Diseases: No Cancer History: Denies History In Past Year Been Physically Harmed or Verbally Threatened: No History of MDRO: No History of Other Communicable Diseases: No Tobacco Use: Current Some Day Smoker Alcohol Use: Occasionally In the Past 12 Months, Have Used or Abuse Any Substance: None Previous Surgical History: Yes Type / Date of Surgery: APPY 1945/ RIGHT ENDARTERECTOMY/ TONSILLECTOMY / B/L KNEES / INFECTION TO FINGER / D&C Anesthesia Reactions: Yes (PONV) Malignant Hyperthermia: No Significant Family History: Cancer, Diabetes Past Medical History Reviewed: Reviewed - No Changes ROS - Limitations ROS Limitations: No Limitations Constitution: REPORTS: Weakness Cardiovascular: REPORTS: Denies Cardiac Symptoms Respiratory: REPORTS: Denies Resp Symptoms Neurological: REPORTS: Confusion (By history; patient appears alert and oriented at this time), Weakness Gastrointestinal: REPORTS: Other (Fecal incontinence by history; some recent loose stools) Endocrine: REPORTS: Denies Symptoms Musculoskeletal: REPORTS: Recent Injury (As above), Other (Discomfort right hip) Genitourinary: REPORTS: Other (Urinary incontinence) Eyes: REPORTS: Denies Symptoms ENT: REPORTS: Denies Symptoms Skin: REPORTS: Denies Skin Symptoms Lympathic: REPORTS: Denies Lympathic Symptoms Immunologic: POSITIVE: Denies Symptoms Psychiatric: POSITIVE: Confusion (By history) General Adult Exam - General Appearance General Appearance: POSITIVE: Alert, Cooperative, No Acute Distress. NEGATIVE: No Evidence of Trauma (Small contusion left shoulder) - HEENT HEENT: POSITIVE: Head Inspection Nml, Eyes Inspection Nml, Ears Inspection Nml, Nose Inspection Nml, Oral/Dental Inspect. Nml, Pharynx Inspect. Nml, PERRL, EOMI - Pupils Pupil Size: 3 mm: Bilateral (PERRLA) - Neck Neck: POSITIVE: Normal Inspection, Thyroid Normal - Respiratory Respiratory: POSITIVE: No Respiratory Distress, Breath Sounds Normal, Chest Non- Tender - Cardiovascular Cardiovascular: POSITIVE: Regular Rate & Rhythm, No Murmur, No Gallop, PMI Normal Peripheral Pulses: Radial (R): 2+, Radial (L): 2+ - Abdomen Abdomen: Soft: (All Quadrants), Normal Bowel Sounds: (All Quadrants), Denies Tenderness: (All Quadrants), No Splenomegaly: (All Quadrants), No Hepatomegaly: (All Quadrants), No Guarding: (All Quadrants), No Rebound: (All Quadrants), No Palpable Pulse: (All Quadrants), No Palpabale Mass: (All Quadrants), No Distention: (All Quadrants), No Rigidity: (All Quadrants) - Back Back: POSITIVE: Normal Inspection - Skin Skin: POSITIVE: Normal Color, Warm, Dry, No Rash - Extremities Extremity: Non-Tender: (LLE), (LUE), (RUE), Normal ROM: (All Extremities), Normal Inspection: (All Extremities), Pelvis Stable: (All Extremities), Normal Tendon Exam: (All Extremities), Edema / Swelling: (All Extremities), Calf Tenderness: (All Extremities), Positive Whitley's Sign: (All Extremities), Tender : (RLE) Additional Extremities Details: Examination of the extremities are normal except for arthritic changes in her fingers. Patient complains of some mild discomfort to the posterior aspect of her right hip, but range of motion is intact and she can raise or heel off the bed with no difficulty. X-ray of the right hip shows no hip or pelvic fractures. 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 NEGATIVE: Motor Normal General Adult Progress - Results Reviewed by me Xrays/CTs/US Reviewed by me: Yes Discussed with Radiologist: Yes Radiology Findings: Chest x-ray shows interstitial changes on the right, which is new on comparison to previous chest x-ray. X-ray right hip normal by my interpretation; radiologist interpretation pending. MRI of head without contrast shows no evidence of acute hemorrhagic or bland infarct. Old focal infarcts identified. Lab Results Reviewed by Me: Yes (UA shows in excess of 100 white blood cells per high-powered field; nitrate) CBC and BMP: 02/22/18 09:55 02/22/18 09:55 EKG Interpreted/Reviewed By Me:: Yes (normal) EKG Interpretation:: POSITIVE: Normal Sinus Rhythm, Normal Rate, Normal Intervals, Normal Preston, Normal QRS, Normal ST/T - Patient's Progress Pain Medication Addressed: POSITIVE: Not Applicable School/Work Release Addressed: POSITIVE: Not Applicable Re-Examine Time: 12:55 Re-Examine Comment: Condition essentially unchanged. Case discussed with hospitalist on-call, and patient admitted for further evaluation and treatment. Status: POSITIVE: Unchanged, Re-Examined - Consult Consult (If Yes, Name of Consulting MD & Time Called): Yes (Dr. Griffiths, hospitalist, 1250) Consulting MD will see pt:: POSITIVE: [facility] [place] Admit Counseled: POSITIVE: Patient, Family, RE: Lab Results, RE: Radiology Results, RE : DX, RE: Need for F/U Patient Care Time - Estimated PCT Patient Care Time (In Minutes): 60 Vital Signs - Recent Vital Signs Vital Signs: Vital Signs (Last 8 hours) Temp Pulse Pulse Resp BP BP Pulse Ox 02/22/18 13:46 100.3 F H 79 20 102/43 88 02/22/18 13:31 72 13 02/22/18 13:16 99.8 F H 85 18 113/49 91 02/22/18 09:11 98.8 F 78 18 110/53 91 - VS Reviewed Vital Signs Reviewed: Yes Discharge Clinical Impression: Urinary tract bacterial infections, Dehydration, Falling, Lung abnormality Discharge Disposition: Admit to Inpatient Condition: Fair Date Decision to Admit to Inpatient: 02/22/18 Time Decision to Admit to Inpatient: 12:15
[2018-02-22] MEDS: cefTRIAXone Inj 2 GM in Sodium Chloride 0.9% 100 ML IV SCH (15:47)
[2018-02-22] MEDS: PANTOPRAZOLE 40 MG TABLET PO SCH (15:48)
--- NOTE | 2018-02-22 17:33 | DI ---
CT CHEST SCAN WITHOUT IV CONTRAST, 02/22/2018 2:08 PM : Clinical History: Abnormal chest x-ray. Interstitial disease was present but more prevalent in the ri ght lung than the left side. Previous Exam: None at this facility. Scans are performed from the base of the neck to the lower lung bases without IV contrast. Sagittal a nd coronal images using non MIPS and MIPS technique are generated. The base of the neck and thoracic inlet are normal. There are no abnormal axillary, supraclavicular, mediastinal, or hilar nodes. The heart is normal. Coronary artery calcifications are present in the l eft mainstem, the proximal half of the LAD and the proximal portion of the left circumflex artery. Th ere is no acute infiltrate or effusion. There is a moderate amount of Edmond A and Edmond B lines ind icating chronic interstitial pulmonary fibrosis. It is slightly more prominent on the right side comp ared to the left side, but not as striking as was noted on the chest x-ray obtained today. Blebs are present in the right upper lobe, the right middle lobe, and in both lower lobes indicating bullous em physema. Mild to moderate chronic bronchiectasis is present in both lower lobes. Both adrenal glands and the spleen as well as the visualized portions of the pancreas and liver are normal. READIN. There is no acute infiltrate or effusion. 2. 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 There is mild to moderate chronic bronchiectasis. 3. Coronary artery disease with calcifications in the LAD and left circumflex arteries.
[2018-02-22] MEDS ORDERED: GABAPENTIN 100 MG CAPSULE PO SCH ×2 (21:00)
[2018-02-22] MEDS ORDERED: ACETAMINOPHEN 500 MG TABLET PO ONE (21:02)
[2018-02-22] MEDS: TAMSULOSIN 0.4 MG CAPSULE PO SCH (21:08)
[2018-02-23 04:54] LABS: BASOPHILS # (AUTO) 0.01 10*3/UL; BASOPHILS % (AUTO) 0.1 % (0-1); EOSINOPHILS # (AUTO) 0.03 10*3/UL; EOSINOPHILS % (AUTO) 0.4 % (0-8); Hematocrit [HCT] 32.4 % (37.0-47.0); Hemoglobin [HGB] 9.7 g/dL (12.0-16.0); LYMPHOCYTES # (AUTO) 1.45 10*3/uL; MEAN CORPUSCULAR HEMOGLOBIN 26.9 PG (27-31); MEAN CORPUSCULAR HGB CONC 29.9 g/dL (33-37); MEAN CORPUSCULAR VOLUME 89.8 FL (81-99); MEAN PLATELET VOLUME 8.9 FL (7.4-12.2); MONOCYTES # (AUTO) 1.37 10*3/UL (0.3-0.8); MONOCYTES % (AUTO) 17.2 % (5-15); NEUTROPHILS # (AUTO) 5.07 10*3/UL; NEUTROPHILS % (AUTO) 63.7 % (50-80); RED BLOOD COUNT 3.61 10^6/uL (4.20-5.40)
[2018-02-23 04:57] LABS: PLATELET MORPHOLOGY COMMENT NORMAL MORPHOLOGY (NORM); RBC MORPHOLOGY COMMENT NORMAL MORPHOLOGY (NORM); WBC MORPHOLOGY COMMENT NORMAL MORPHOLOGY (NORM)
[2018-02-23 05:04] LABS: BLOOD UREA NITROGEN 24 mg/dL (7-22); BUN/CREATININE RATIO 21.81 (6-20); SERUM ALBUMIN 2.9 g/dL (3.5-4.8)
[2018-02-23] MEDS: LEVOTHYROXINE 112 MCG TABLET PO SCH (05:11)
[2018-02-23] MEDS: MAGNESIUM OXIDE 400 MG TABLET PO SCH (06:54)
[2018-02-23] MEDS: PANTOPRAZOLE 40 MG TABLET PO SCH (06:55)
[2018-02-23] MEDS ORDERED: predniSONE Tab 20 MG TAB PO SCH (07:00)
[2018-02-23] MEDS ORDERED: MAGNESIUM OXIDE 400 MG TABLET PO SCH (07:00)
[2018-02-23] MEDS: ASPIRIN 325 MG TABLET PO SCH (08:15)
[2018-02-23] MEDS: Calcium/Vit D 600mg/400u Tab 1 TAB TABLET PO SCH (08:15)
[2018-02-23] MEDS ORDERED: ACETAMINOPHEN 500 MG TABLET PO PRN (08:15)
[2018-02-23] MEDS: Multivitamin Tab 1 TAB PO SCH (08:16)
[2018-02-23] MEDS ORDERED: NORMAL SALINE 10 ML SYRINGE FLUSH IVP PRN (08:31)
[2018-02-23] MEDS ORDERED: UBIDECARENONE 400 MG PO SCH (09:00)
[2018-02-23] MEDS ORDERED: MULTIVITS W FE OTHER MIN PO SCH (09:00)
[2018-02-23] MEDS ORDERED: ASPIRIN 325 MG TABLET PO SCH (09:00)
--- NOTE | 2018-02-23 09:11 | PDOC(PROG) ---
Interval History: Feels much better today she says that has no pain patient much clearer with her thinking no chest pain nausea or vomiting Objective : Data - Labs CBC and BMP: 02/23/18 04:33 02/23/18 04:33 Objective : Exam - General General Appearance: Cooperative - Respiratory Respiratory Exam: Clear to Auscultation - Bilaterally, Breathing Non Labored, Normal To Percussion, Normal to Percussion and Palpation - Cardiovascular Cardiovascular Exam: RRR, No Murmur, No Clicks, No Gallops, No Rubs, PMI Non- Displaced - GI/Abdominal GI/Abdominal Exam: Normal Bowel Sounds, Non Tender, Non Distended, Soft, No Masses, No Hepatomegaly, No Splenomegaly, No Organomegaly - Extremities Extremities Exam: No Clubbing Present, No Edema Present, No Cyanosis Present Assessment and Plan - Patient Problems (1) UTI (urinary tract infection) Current Visit: Yes Status: Acute Code(s): N39.0 - Urinary tract infection, site not specified (2) CHF (congestive heart failure) Current Visit: Yes Status: Acute Code(s): I50.9 - Heart failure, unspecified (3) Falls frequently Current Visit: Yes Status: Acute Code(s): R29.6 - Repeated falls - Assessment / Plan Additional Assessment/Plan Details: #1 UTI continue ceftriaxone improving #2 mild CHF elevated BNP asymptomatic #3 acute kidney injury is prerenal continue IV fluids this is improving #4 abnormality on x-ray CT scan reveals a interstitial fibrosis on the right lung more than left. Recommend pulmonology consult if interested but at this point the patient and family are not interested #5 multiple falls patient unable to take care of himself discussed with son and daughter at length. Yesterday she was Interested in pursuing retirement placement in [place] as well as all family members today she changes her mind and would like to go home and she said she will talk to her family members will consult PT and OT to evaluate and evaluate her closer if she is able to live at home alone this is what she would like #6 patient with the muscle aches and poor cognition unable to focus daughter has not been able to tolerate statins in the past for the same reason and she would like her mother to stop taking them a patient agrees she has no complaints today she feels much better more lucid
[2018-02-23] MEDS: predniSONE Tab 20 MG TAB PO SCH (09:41)
[2018-02-23] MEDS: UBIDECARENONE 400 MG PO SCH (09:42)
[2018-02-23] MEDS: HYDROcodone-APAP 10 MG-325 MG TABLET PO PRN ×2 (12:03→20:23)
[2018-02-23] MEDS: cefTRIAXone Inj 2 GM in Sodium Chloride 0.9% 100 ML IV SCH (14:49)
[2018-02-23] MEDS: TAMSULOSIN 0.4 MG CAPSULE PO SCH (21:52)
[2018-02-24] MEDS: LEVOTHYROXINE 112 MCG TABLET PO SCH (05:51)
[2018-02-24] MEDS: PANTOPRAZOLE 40 MG TABLET PO SCH (06:42)
[2018-02-24] MEDS: MAGNESIUM OXIDE 400 MG TABLET PO SCH (06:43)
[2018-02-24] MEDS: HYDROcodone-APAP 10 MG-325 MG TABLET PO PRN ×3 (06:45→20:22)
[2018-02-24] MEDS: Calcium/Vit D 600mg/400u Tab 1 TAB TABLET PO SCH (09:10)
[2018-02-24] MEDS: predniSONE Tab 20 MG TAB PO SCH (09:10)
[2018-02-24] MEDS: ASPIRIN 325 MG TABLET PO SCH (09:10)
[2018-02-24] MEDS: Multivitamin Tab 1 TAB PO SCH (09:11)
[2018-02-24] MEDS: UBIDECARENONE 400 MG PO SCH (09:13)
--- NOTE | 2018-02-24 10:39 | PDOC(PROG) ---
Date and Time of Service: 02/24/2018 10:39 AM Interval History: Subjective Patient came into the hospital because of weakness, multiple falls. She is denying shortness of breath. Denying chest pain. she said she has a history of trigeminal neuralgia and she is on gabapentin for it. She wants to be back on the gabapentin. Objective : Data - Labs CBC and BMP: 02/23/18 04:33 02/23/18 04:33 Objective : Exam - General General Appearance: No Acute Distress, Cooperative - Head Head Exam: Normal Inspection - Eye Eye Exam: Normal Appearance - ENT ENT Exam: Normal Exam - Neck Neck Exam: Normal Inspection - Respiratory Additional Respiratory Exam Details: Few crackles at the bases. - Cardiovascular Cardiovascular Exam: RRR - GI/Abdominal GI/Abdominal Exam: Normal Bowel Sounds, Non Tender, Non Distended, Soft, No Organomegaly - Rectal Rectal Exam: Deferred - External Exam: Deferred - Extremities Additional Extremities Exam Details: Changes of rheumatoid arthritis noted in the hands. - Back Back Exam: Normal Inspection - Neurological Neurological Exam: Alert, Oriented x 3, CN II-XII Intact - Psychiatric Psychiatric Exam: Flat Affect Assessment and Plan - Patient Problems (1) UTI (urinary tract infection) Current Visit: Yes Status: Acute Comment: Urine showing growth of gram-negative bacilli continue current antibiotics. Apparently her family looking for placement for her. I think we' ll continue physical therapy for now. Will discuss with partner integration planner and see when we can switch her to swing bed. Code(s): N39.0 - Urinary tract infection, site not specified (2) Falls frequently Current Visit: Yes Status: Acute Comment: Probably multifactorial continue PT and OT. Her rheumatoid arthritis plus the infection probably contributed to the weakness and the loss of balance. The MRI that she had when she came in showed old strokes. Code(s): R29.6 - Repeated falls (3) History of trigeminal neuralgia Current Visit: No Status: Acute Onset Date: 09/11/15 Comment: She wanted to go back on the gabapentin will put her back on it. Code(s): Z86.69 - Personal history of other diseases of the nervous system and sense organs (4) Lung abnormality Current Visit: Yes Status: Acute Comment: CT suggests some fibrosis may be secondary to her rheumatoid arthritis. Code(s): J98.4 - Other disorders of lung (5) Rheumatoid arthritis Current Visit: No Status: None Comment: Continue prednisone. Qualifiers: Rheumatoid arthritis location: multiple sites Rheumatoid factor presence: with rheumatoid factor Qualified Code(s): M05.79 - Rheumatoid arthritis with rheumatoid factor of multiple sites without organ or systems involvement (6) Hypothyroidism Current Visit: No Status: None Comment: Same med Qualifiers: Hypothyroidism type: acquired Qualified Code(s): E03.9 - Hypothyroidism, unspecified
--- NOTE | 2018-02-24 10:47 | PTI REPORT ---
Thank you for the referral of Louise Forman. She was seen on 02/23/18 for an inpatient evaluation secondary to a UTI/CHF and a history of frequent falls. SUBJECTIVE: The patient is an 82-year-old female who was referred to physical therapy for evaluation. Admitting diagnosis is UTI/CHF and a history of frequent falls. The patient reports that she has been getting dizzy at home and crumpling to the floor with several falls in the past two days prior to her admission. She does have a small bruise on her right scapula as well as her right wrist, but otherwise no other injuries from the falls. The patient does live with her daughter and son-in-law who both work out of the home and so are away for extended periods during the day. She does have a four wheeled walker which she uses for ambulation with supervision, resting her forearms on the walker as she is unable to support weight on either wrist due to pain. She does report that she is able to dress herself and get in and out of bed independently. She does require assistance with showers. PAST MEDICAL HISTORY: Past medical history can be found in the patient's medical record. OBJECTIVE FINDINGS: General observations: The patient is alert and oriented to time, place, and person. She is quite cheerful and cooperative. Range of motion/Strength: At this time the patient does demonstrate full functional range of motion in the lower extremities with strength of 3+/5. Bed mobility: The patient does require assistance to come to sitting position. Balance: Sitting balance is good. Initial standing balance is fair. Transfers: The patient is able to transfer from sit to stand from the bed, though she rocks two to three times prior to coming to standing position. The patient did transfer on and off the toilet using grab bars for support. Again, she rocked three times prior to coming to standing position from the toilet seat. Ambulation: The patient ambulated 15 feet x2 with front wheeled walker with a forward, inclined position and short, shuffling steps. ASSESSMENT: At this time this patient does demonstrate instability with ambulation as well as difficulty with transfers in and out of bed and on and off the commode. She is unsafe at this time to be sent home, even with 24-hour supervision. It is recommended that she receive physical therapy for an extended period for strengthening, balance training, and gait training. Short-Term Goals: To be met by discharge from inpatient: Patient will be able to transfer ind in/out of bed with supervision Patient will be able to ambulate 100 feet with 4WW with supervision Patient will be able to transfer in/out of chair with arms, on/off toilet with supervision Long-Term Goals: To be met following discharge from inpatient: Patient will be able to transfer in/out of bed, on/off chair with arms ind Patient will be able to patient will amb with 4WW ind on level surface, 200 feet TREATMENT PLAN: Patient will be seen B.I.D during the week and one time per day over the weekend as an inpatient for strengthening, balance training, and gait training. INITIAL TREATMENT: Treatment today consisted of the initial evaluation activities only. Note done by: Kerry Blackman, PT REGINA
--- NOTE | 2018-02-24 11:30 | OTI REPORT ---
Thank you for the referral of Louise Forman. She was seen on 02/23/18 for an occupational therapy inpatient evaluation secondary to UTI/CHF and history of falls. SUBJECTIVE: The patient is an 82-year-old female. The patient reports she is doing well this afternoon. The patient's son, daughter, and granddaughter were present for the occupational therapy evaluation and they provided input as well. The patient reports that she lives with her daughter here in [place] currently. The patient states recently she has had a lot of falls; her daughter reports that she has had five falls within the last two days due to her legs buckling. The patient does report that she also falls out of bed on occasion. At home the patient is able to complete dressing herself; however, she struggles with pulling up her pants due to hand weakness. She is able to walk with use of a four wheeled walker at home. Her daughter does provide assistance for all iADL tasks to include driving, cooking, cleaning, laundry, and groceries. At times the patient is incontinent and her daughter reports she goes through several briefs per day. The patient reports she is able to change the briefs; however, she struggles with pulling them up at times. PAST MEDICAL HISTORY: Past medical history can be found in the patient's medical record. OBJECTIVE FINDINGS: General observations: The patient was lying supine in bed upon the therapist's arrival. She is currently on 2 liters of oxygen; however, she is not on oxygen at home. Her daughter does report that it has been recommended that the patient use oxygen at home; however, the patient refuses to wear. Bed mobility: The patient demonstrated the ability to sit up in bed with minimal assistance to sit edge of bed. Transfers: The patient performed sit to stand transfers with minimal assist. Activities of daily living: The patient demonstrated the ability to complete toileting task with minimal assist for the toilet transfer and max assist to pull up her brief. Ambulation: The patient did require contact guard assist during ambulation tasks due to balance deficit and weakness. Range of motion: The patient demonstrated upper extremity range of motion that was within functional limits for the shoulder, elbow, hand, and wrist. Strength: The patient demonstrated 3/5 manual muscle grade for the shoulder, elbow, hand, and wrist bilaterally. Cognition: The patient participated in the Francis Cognitive Assessment (MoCA) . The patient scored an 18/30 overall, which indicates a MILD cognitive impairment. Struggle areas for the patient were her visuospatial/executive functioning. She did have some difficulty with delayed recall and orientation. Overall language and attention was fair. ASSESSMENT: In discussion with the family, including the daughter and the son, they don't feel that they are able to take care of the patient any longer. The ultimate goal would be to have 24-hour care at this time. They would also like to have a cognitive screening performed. Problem List: Decreased upper extremity strength Decreased balance Decreased activity tolerance Decreased functional mobility Occupational Therapy Goals: To be met by discharge from inpatient: Patient will be able to participate in upper extremity strengthening to increase her manual muscle grade by I grade bilaterally for the shoulder, elbow , hand, and wrist. Patient will demonstrate the ability to stand at the sink x10 minutes to complete grooming tasks. Patient will complete lower extremity dressing tasks with set up assistance. Patient will complete upper extremity dressing tasks with set up assistance. Patient will complete showering task with set up assistance. Patient will demonstrate the ability to tolerate 20 minutes of upper extremity strengthening before becoming fatigued. Patient will complete functional transfers to include toilet, chair, and bed transfers with stand by assistance only for safety. TREATMENT PLAN: Patient will be seen B.I.D during the week and one time per day over the weekend as an inpatient to address the above goals and objectives. At this time recommendations do include 24-hour care due to cognitive functioning and the patient's family's inability to provide 24-hour care, especially with the most recent falls. INITIAL TREATMENT: Treatment today consisted of the initial evaluation followed by cognitive screening, functional mobility tasks including bed mobility, and toileting task. REGINA
--- NOTE | 2018-02-24 11:41 | OT.PROG ---
Progress Note Progress Note: S: pt reports that she has fallen a couple of times at home and that her legs start to shake when she's about to fall. She understands that she must get up and move if she ever wants to get out of hospital. O: pt was seen in her room and completed LE dressing with min A and Ue dressing INd. She completed transfer approx 20 ft before transferring the rest of way to therapy in w/c. She completed 8 min on nU step to increase activity tolerance and transferred to mat table with CGA after completion. She completed UE exercises with RTB in all planes to increase strength x15. She then participated in PT. A: pt may continue to benefit from therapy to increase her activity tolerance and improve LE strength. P: continue per POC.
[2018-02-24] MEDS: cefTRIAXone Inj 2 GM in Sodium Chloride 0.9% 100 ML IV SCH (14:27)
[2018-02-24] MEDS: GABAPENTIN 100 MG CAPSULE PO SCH ×2 (15:18→20:21)
--- NOTE | 2018-02-24 16:31 | OT.PROG ---
Progress Note Progress Note: S: pt states that she can go to therapy even though she has family present. Towards the end of therapy she stated that she wishes she would have done as good as she did in the morning. O: pt was seen in her room and completed transfer approx 55 ft before sitting in w/c and being transferred the rest of way to therapy. She completed 8 min on nu step to increase activity tolerance. She then transferred to mat table where she completed exercises. Exercises were completed in shoulder press 2x20 with 0# , RTb in bicep flex, shoulder ext/flex, rows and tricep ext. She then participated in PT, but was returned to her room by OT and left in chair with alarm on. A: pt participates well while on 2 li of o2. she has had zero near falls and has progressed slightly with distance she travels with transfers using 4WW. P: Continue per POC.
--- NOTE | 2018-02-24 17:15 | PT.PROG ---
Progress Note Progress Note: S. Patient stated that she is feeling pretty good this morning, she agreed to go to the therapy gym. O. Patient was wheeled to the therapy gym where she performed seated exercises in the form of; marches, long arc quads, resisted knee flexion all x 15, then performed supine exercises in the form of; breidges x5, sit ups, clam shells, straight leg raises, Short arc quads, hip abduction/adduction, ball squeezes all x 10 with red thera band. Patient ambulated 175 feet back to her room where she was left with alarm and call light. A. Patient tolerated therapy well this morning. She is making gains with strength and mobility however continues to require min assist with transfers and frequent verbal cues for safety awareness. Patient would continue to benefit from skilled therapy at this time. P. Continue POC.
--- NOTE | 2018-02-24 17:19 | PT.PROG ---
Progress Note Progress Note: S. Patient stated that she would like to go to the therapy gym this afternoon. O. Patient was wheeled to the therapy gym where she performed seated exercises in the form of; marches, long arc quads, resisted knee flexion all x 15, then performed supine exercises in the form of; clam shells, straight leg raises, Short arc quads, hip abduction/adduction, ball squeezes all x 10 with red thera band. Patient ambulated 175 feet back to her room where she was left with alarm and call light. A. Patient was unable to perform all exercises this afternoon due to having pain in her neck. Patient continues to have weakness and requires verbal cues for safety, Patient would continue to benefit from skilled therapy at this time. P. Continue POC.
[2018-02-24] MEDS: TAMSULOSIN 0.4 MG CAPSULE PO SCH ×2 (20:22→20:25)
[2018-02-25] MEDS: LEVOTHYROXINE 112 MCG TABLET PO SCH (04:54)
[2018-02-25] MEDS: PANTOPRAZOLE 40 MG TABLET PO SCH (07:50)
[2018-02-25] MEDS: MAGNESIUM OXIDE 400 MG TABLET PO SCH (07:51)
--- NOTE | 2018-02-25 07:54 | PDOC(PROG) ---
Date and Time of Service: 02/25/2018 8:11 AM Interval History: Subjective Patient feels better today compared to yesterday. She denied nausea, vomiting. Overall she feels better. She is working with physical therapy. Objective : Data - Labs CBC and BMP: 02/23/18 04:33 02/23/18 04:33 Objective : Exam - General General Appearance: No Acute Distress, Cooperative - Head Head Exam: Normal Inspection - Eye Eye Exam: Normal Appearance - Neck Neck Exam: Normal Inspection - Respiratory Respiratory Exam: Clear to Auscultation - Bilaterally - Cardiovascular Cardiovascular Exam: RRR - GI/Abdominal GI/Abdominal Exam: Normal Bowel Sounds, Non Tender, Non Distended, Soft, No Organomegaly - Rectal Rectal Exam: Deferred - External Exam: Deferred - Extremities Additional Extremities Exam Details: Changes of advanced rheumatoid arthritis noted in her hands - Neurological Neurological Exam: Alert, Oriented x 3, CN II-XII Intact, Speech Intact / Clear , Moves All Extremities Equally - Psychiatric Psychiatric Exam: Normal Affect Assessment and Plan - Patient Problems (1) UTI (urinary tract infection) Current Visit: Yes Status: Acute Comment: Continue current antibiotics. We may switch her to by mouth today. I will speak with the automatic data processing planner about switching her status to swing bed status. Code(s): N39.0 - Urinary tract infection, site not specified (2) Falls frequently Current Visit: Yes Status: Acute Comment: Continue PT and OT Code(s): R29.6 - Repeated falls (3) History of trigeminal neuralgia Current Visit: No Status: Acute Onset Date: 09/11/15 Comment: She is back on gabapentin Code(s): Z86.69 - Personal history of other diseases of the nervous system and sense organs (4) Lung abnormality Current Visit: Yes Status: Acute Comment: There may be some involvement of the lung secondary to rheumatoid arthritis. Code(s): J98.4 - Other disorders of lung (5) Rheumatoid arthritis Current Visit: No Status: None Comment: Continue steroid which she's been on for 2 months Qualifiers: Rheumatoid arthritis location: multiple sites Rheumatoid factor presence: with rheumatoid factor Qualified Code(s): M05.79 - Rheumatoid arthritis with rheumatoid factor of multiple sites without organ or systems involvement (6) Hypothyroidism Current Visit: No Status: None Comment: Same med Qualifiers: Hypothyroidism type: acquired Qualified Code(s): E03.9 - Hypothyroidism, unspecified
[2018-02-25] MEDS: Calcium/Vit D 600mg/400u Tab 1 TAB TABLET PO SCH (08:11)
[2018-02-25] MEDS: GABAPENTIN 100 MG CAPSULE PO SCH (08:12)
[2018-02-25] MEDS: predniSONE Tab 20 MG TAB PO SCH (08:12)
[2018-02-25] MEDS: ASPIRIN 325 MG TABLET PO SCH (08:12)
[2018-02-25] MEDS: Multivitamin Tab 1 TAB PO SCH (08:12)
[2018-02-25] MEDS: UBIDECARENONE 400 MG PO SCH (08:29)
[2018-02-25 08:43] VITALS: O2SAT 99
--- NOTE | 2018-02-25 10:09 | OT.PROG ---
Progress Note Progress Note: Occupational Therapy: 30 min S: pt stated she was doing okay today and that her wrist were really sore and her ankles hurt today. O: pt completed functional transfer from chair to toilet with MIN A for oxygen tube management, 4WW and CGA for safety. pt completed all toileting hygiene tasks Independently. pt completed ADL task of dressing. pt I in UE dressing with set up. pt MIN A in LE dressing. pt completed functional ambulation x 10' with 4WW and CGA for safety. pt completed AROM exercises of shoulder flexion x10 , horizontal abduction x10, abduction x10. A: pt tolerated session well but was unable to completed any tension or weighted exercises due to wrist pain. P: continue POC
--- NOTE | 2018-02-25 11:29 | PT.PROG ---
Progress Note Progress Note: S. Patient states that she is not feeling well this morning, she reports that she is very stiff and sore. O. Patient was wheeled to the therapy gym where she performed seated exercises in the form of; long arc quads, marches, ball squeezes, clam shells, resisted knee flexion, heel toe raises all x 15 bilaterally. Patient performed sit to stands x 5 then used the nu-step x 5 minutes. Patient ambulated 300 feet around the nurses station. Patient was left in chair with alarm and call light. A. Patient tolerated therapy fair this morning, she struggles with weakness and fatigues easily. Patient would continue to benefit from skilled therapy to increase strength, mobility and endurance. P. Continue POC.
[2018-02-25] MEDS: HYDROcodone-APAP 10 MG-325 MG TABLET PO PRN (11:47)
[2018-02-25 12:39] VITALS: BP 130/48; RESP 18; TEMP 97.6
--- NOTE | 2018-02-25 14:30 | DCSUMMARY ---
Hospitalization Summary Admit Date: 02/22/2018 Discharge Date: 02/25/18 Hospital Course: Discharge diagnoses 1. Urinary tract infection with Escherichia coli 2. Rheumatoid arthritis 3. Osteoarthritis 4. History of right-sided carotid endarterectomy 5. Hypothyroidism 6. Hypercholesterolemia 7. Obstructive sleep apnea on CPAP 8. Possible pulmonary fibrosis Hospital course This is an 82 years old female with medical history significant for history of rheumatoid arthritis, osteoarthritis and sleep apnea is been having multiple falls at home and increasing urinary frequency and because of that she was brought to the ER was found to have urinary tract infection and abnormality on the x-ray of the lung suspicious for fibrosis. Patient was admitted to the hospital was found to have urinary tract infection with Escherichia coli we continued antibiotics and she started PT and OT however she remained weak so her status was switched to swing bed status and we continued physical therapy. I saw her later on during hospital stay we continued with the same plan and as I said she remained weak so status was switched to swing bed status. She'll continue physical therapy. Family are looking for placement for her and it is likely that she'll end up going to a shelter. Discharge instruction Diet regular Activity as started Medications Active Medications Acetaminophen (Tylenol) 1,000 mg PO Q6H PRN PRN Reason: FEVER >101 Hydrocodone Bitart/Acetaminophen ([place] 10/325 Tab) 1 tab PO Q6H PRN PRN Reason: pain Last Admin: 02/25/18 11:47 Dose: 1 tab Aspirin (Aspirin) 325 mg PO DAILY [facility] Last Admin: 02/25/18 08:12 Dose: 325 mg Calcium/Vitamin D (Calcium 600mg + D 400u Tab) 2 tab PO DAILY [facility] Last Admin: 02/25/18 08:11 Dose: 2 tab Gabapentin (Neurontin) 100 mg PO TID [facility] Last Admin: 02/25/18 08:12 Dose: 100 mg Ceftriaxone Sodium 2 gm/ (Sodium Chloride) 100 mls @ 200 mls/hr IV Q24H [facility] Last Admin: 02/24/18 14:27 Dose: 200 mls/hr Levothyroxine Sodium (Synthroid) 112 mcg PO DAILY@0530 [facility] Last Admin: 02/25/18 04:54 Dose: 112 mcg Magnesium Oxide (Mag-Ox) 400 mg PO C BK [facility] Last Admin: 02/25/18 07:51 Dose: 400 mg Multivitamins Therapeutic (Thera Tab) 1 tab PO DAILY [facility] Last Admin: 02/25/18 08:12 Dose: 1 tab Non-Formulary Medication (Ubidecarenone [Coq-10]) 400 mg PO DAILY [facility] Last Admin: 02/25/18 08:29 Dose: Not Given Pantoprazole Sodium (Protonix) 40 mg PO AC BK [facility] Last Admin: 02/25/18 07:50 Dose: 40 mg Prednisone (Deltasone Tab) 20 mg PO DAILY [facility] Last Admin: 02/25/18 08:12 Dose: 20 mg Sodium Chloride (Saline Flush) 5 - 20 ml IVP BID PRN PRN Reason: Flush Tamsulosin HCl (Flomax) 0.4 mg PO BEDTIME [facility] Last Admin: 02/24/18 20:25 Dose: Not Given Follow-up patient status will be changed to swing bed status continue physical therapy Exam - Vitals Vital Signs: Vital Signs Temperature 97.6 F Temperature Source Temporal Artery Scan Pulse Rate [Apical] 68 Pulse Rate [Pulse Oximeter] 71 Respiratory Rate 18 Blood Pressure [Left Arm] 130/48 Pulse Ox 99 Oxygen Flow Rate 2 Oxygen Delivery Method Nasal Cannula Height 5 ft Weight 180 lb Patient Problems - Patient Problem List (1) UTI (urinary tract infection) Status: Acute Code(s): N39.0 - Urinary tract infection, site not specified Category: Medical (2) Falls frequently Status: Acute Code(s): R29.6 - Repeated falls Category: Medical (3) History of trigeminal neuralgia Status: Acute Onset Date: 09/11/15 Comment: right Code(s): Z86.69 - Personal history of other diseases of the nervous system and sense organs Category: Medical (4) Lung abnormality Status: Acute Code(s): J98.4 - Other disorders of lung Category: Medical (5) Rheumatoid arthritis Status: None Qualifiers: Rheumatoid arthritis location: multiple sites Rheumatoid factor presence: with rheumatoid factor Qualified Code(s): M05.79 - Rheumatoid arthritis with rheumatoid factor of multiple sites without organ or systems involvement Category: Medical (6) Hypothyroidism Status: None Qualifiers: Hypothyroidism type: acquired Qualified Code(s): E03.9 - Hypothyroidism, unspecified Category: Medical
--- NOTE | 2018-03-01 18:00 | PDOC(PROG) ---
General Note Progress Note: Documenting the family meeting with Louise Forman's daughter also present daily and her nurse and student nurse chantal patient was discharged home in stable improved condition I told the daughter that the social media intern told us that they were out looking for multiple nursing homes but none of them fit her needs this as well as told I was also told this by Dr. Choi and report. When I talked to Louise Forman she looks much improved she states to me that she was doing better and she will like to be discharged home she also told me that if she would wait for her daughter to come this afternoon and also her brother was there standing next to her apparently before the daughter got here she had her son take her home. The daughter kept on saying that the she has been taking care of her brother that's an alcoholic and that she has had it and does not want to take care of them anymore we kept on the reassuring and telling her how the events unfolded and with the wishes of her mother were that she would like to go home and then go to the intermediate once they find one that she likes and that she had talked to all the her kids about it. I also talked to [facility] she had maybe right a prescription for outpatient PT and OT and at the patient was the much better and stronger and able to go home also on the [employer] MACHINE OPERATOR's in the nursing she was performing all her tasks urine hospital including dressing herself and going to the bathroom. The patient's daughter said that she will talk to her mother and tolerated straight up that she is not able to take care of her anymore and that they will keep looking for intermediate that she would like she also said that the problem was that she wants to take her little dog honey with her her oxygen and concentrated with the liver that her house he called to verify as well as follow-up appointments with her primary care physician on March 12 and March 17 with the urologist Patient Problems - Patient Problem List (1) UTI (urinary tract infection) Status: Acute Code(s): N39.0 - Urinary tract infection, site not specified Category: Medical (2) CHF (congestive heart failure) Status: Acute Code(s): I50.9 - Heart failure, unspecified Category: Medical (3) Falls frequently Status: Acute Code(s): R29.6 - Repeated falls Category: Medical
== END 2018-02-25 15:04 | disposition swing bed (61) | DRG 690 ==
LOC: ER 09:02 → MED/SURG 13:16
PROVIDERS: ADMIT Internal Medicine; ATTEND Internal Medicine